=== PATIENT | male | born 1930 | race Caucasian/White ===

== ENCOUNTER → 2016-10-24 | Outpatient (REF) | payer MEDICARE, BC, OTHER ==
[~2016-10-24] MED LIST: /WARF5TA OR; ALPR0.25 OR; AUGM875T27 PO; CELE40TA OR; DEPA250T3 OR; GABA600T3 OR; HYOS0.375 OR; LEVOXYL25 MCG OR; MAXA10TA20 PO; NEUR300C PO; NEUR600T PO; OMEGA 3; OMEP20TA7 OR; REME15TA OR; WARF5VL IV; XANA0.25 OR; XANA0.5T PO; [UNRECOGNIZED DRUG - OTHER]; [UNRECOGNIZED DRUG - OTHER] OR
[2016-10-24 13:59] LABS: BASO % 0.6 % (0.0-1.0); EOS # 0.2 K/mm3 (0.0-0.50); EOS % 3.6 % (0.0-3.0); LARGE UNSTAINED CELL # 0.1 K/mm3 (0.0-0.4); LYMPH # 1.3 K/mm3 (1.5-4.5); LYMPH % 24.5 % (24.0-44.0); MEAN CORPUSCULAR HEMOGLOBIN 29.8 pg (27.0-33.0); MEAN CORPUSCULAR HGB CONC 32.2 g/dl (32.0-36.5); MEAN CORPUSCULAR VOLUME 92.6 fl (80.0-96.0); MONO # 0.3 K/mm3 (0.0-0.8); MONO % 6.4 % (0.0-5.0); NEUTROPHILS # 3.3 K/mm3 (1.8-7.7); NEUTROPHILS % 62.9 % (36.0-66.0); PLATELET COUNT, AUTOMATED 142 k/mm3 (150-450); RED CELL DISTRIBUTION WIDTH 13.6 % (11.5-14.5); WHITE BLOOD COUNT 5.2 K/mm3 (4.0-10.0)
[2016-10-24 14:01] LABS: ALBUMIN 3.4 GM/DL (3.2-5.2); ALBUMIN/GLOBULIN RATIO 1.26 (1.00-1.93); BILIRUBIN,TOTAL 0.5 MG/DL (0.2-1.0); CALCIUM LEVEL 8.8 MG/DL (8.8-10.2); CREATININE FOR GFR 1.35 MG/DL (0.70-1.30); FREE T4 1.16 NG/DL (0.76-1.46); GLOMERULAR FILTRATION RATE 53.3 (>35); POTASSIUM SERUM 3.9 MEQ/L (3.5-5.1); TOTAL PROTEIN 6.1 GM/DL (6.4-8.2)
== END ==
LOC: M LABSMT 13:14
PROVIDERS: ATTEND Emergency Medicine
DX: E03.9 Hypothyroidism, unspecified (principal); E78.2 Mixed hyperlipidemia; R53.83 Other fatigue

== ENCOUNTER 2016-11-28 11:08 | Emergency (ER) | payer MEDICARE, BC, OTHER ==
[~2016-11-28] VITALS: Ht 185.4 cm; Wt 63.5 kg
[2016-11-28] MEDS ORDERED: PRED5TA PO (11:34)
[2016-11-28] MEDS ORDERED: ASPI81CH PO (11:34)
[2016-11-28] MEDS ORDERED: QUET5TAB PO (11:34)
--- NOTE | 2016-11-28 12:36 | ECGEPIP ---
Stationary ECG Study [facility] - ED Test Date: 2016-11-28 Pat Name: JOBY CONNOR Department: Room: - Gender: M Health Program Manager: aisha : 1930 Requested By: Sai Joe Order Number: [id number] Reading MD: Genet Moore Measurements Intervals [place] Rate: 59 P: 56 NE: 190 QRS: 25 QRSD: 88 T: 48 QT: 447 QTc: 445 Interpretive Statements SINUS BRADYCARDIA NSTTW ABNORMALITY SIMILAR 09/23/14 Electronically Signed On 11-28-2016 12:36:06 EDT by Genet Moore
[2016-11-28 12:58] LABS: BASO % 0.3 % (0.0-1.0); EOS # 0.1 K/mm3 (0.0-0.50); EOS % 1.3 % (0.0-3.0); LARGE UNSTAINED CELL # 0.1 K/mm3 (0.0-0.4); LARGE UNSTAINED CELL % 1.1 % (0.0-4.0); LYMPH # 0.5 K/mm3 (1.5-4.5); LYMPH % 7.7 % (24.0-44.0); MEAN CORPUSCULAR HEMOGLOBIN 31.2 pg (27.0-33.0); MEAN CORPUSCULAR HGB CONC 34.6 g/dl (32.0-36.5); MEAN CORPUSCULAR VOLUME 90.1 fl (80.0-96.0); MONO # 0.3 K/mm3 (0.0-0.8); MONO % 4.9 % (0.0-5.0); NEUTROPHILS # 5.7 K/mm3 (1.8-7.7); NEUTROPHILS % 84.6 % (36.0-66.0); PLATELET COUNT, AUTOMATED 148 k/mm3 (150-450); RED CELL DISTRIBUTION WIDTH 13.8 % (11.5-14.5); WHITE BLOOD COUNT 6.8 K/mm3 (4.0-10.0)
[2016-11-28] MEDS ORDERED: ONDANSETRON 4MG/2ML VIAL (J2405) IV ONE (13:00)
[2016-11-28 13:21] LABS: CALCIUM LEVEL 9.1 MG/DL (8.8-10.2); CREATININE FOR GFR 1.31 MG/DL (0.70-1.30); GLOMERULAR FILTRATION RATE 55.2 (>35)
--- NOTE | 2016-11-28 15:32 | REP ---
ACUTE ABDOMINAL SERIES: 11/28/2016. Comparison: Portable chest 05/03/2015, CT abdomen pelvis 12/04/2015. Clinical history: Vomiting. PA chest. Lungs well inflated and clear. Heart, mediastinal and hilar contours are normal. There appears to be a small granuloma right midlung zone. No effusion, infiltrate or mass. Heart not enlarged. The aorta is calcified at the arch, mildly tortuous without aneurysm. Airway intact. Bones show degenerative changes. No compression deformity. Flat and upright abdomen: Right upper quadrant clips from prior cholecystectomy noted. There are degenerative disc and facet changes lower lumbar spine, greatest at L4-5 and L5-S1. Marginal osteophytes seen throughout the lumbar and lower thoracic spine. SI joints with minor degenerative changes. The hips show narrowing of the joint spaces along the acetabular roof peripherally and acetabular spurs with subchondral cysts. Symphysis pubis also shows some cystic change and sclerosis. No destructive lesion. The gas pattern is nonspecific with scattered stool and gas throughout without dilated loops, air-fluid levels, masses or free air in the abdomen and pelvis. Impression: 1. No dilated colon or small bowel loops with no obstruction, mass or free air.2. Right upper quadrant clips from prior cholecystectomy. 3. PA chest without acute finding. Signed by Layton Huerta MD 11/28/2016 05:12 P
[2016-11-28] MEDS ORDERED: ONDA4TAB6 PO (16:35)
[2016-11-28 17:37] VITALS: BP 122/60
--- NOTE | 2016-11-29 09:00 | ECGEPIP ---
Stationary ECG Study [facility] - ED Test Date: 2016-11-28 Pat Name: JOBY CONNOR Department: Room: - Gender: M Assembler Watch Train: rosibel : 1930 Requested By: Sai Joe Order Number: [id number] Reading MD: Genet Moore Measurements Intervals [place] Rate: 62 P: 61 MA: 194 QRS: 22 QRSD: 101 T: 61 QT: 419 QTc: 427 Interpretive Statements SINUS RHYTHM NONSPECIFIC T-WAVE ABNORMALITY SIMILAR 11/28/16 Electronically Signed On 11-29-2016 9:00:02 EDT by Genet Moore
== END 2016-11-28 17:51 | disposition home or self-care (01) ==
LOC: EDBD 11:08 → EDSEX 11:08 → M ED 12:15
DX: R55 Syncope and collapse (principal); R11.10 Vomiting, unspecified; G20 Parkinson's disease; Z88.8 Allergy status to other drugs, medicaments and biological substances; Z88.5 Allergy status to narcotic agent; Z88.1 Allergy status to other antibiotic agents; Z79.899 Other long term (current) drug therapy; Z79.82 Long term (current) use of aspirin; Z79.52 Long term (current) use of systemic steroids
CPT/HCPCS: 36415; 74022; 80048; 82550; 82553; 84443; 84484; 85025; 93005; 93041; 94760; 96374; 99285; J2405

== ENCOUNTER → 2017-01-06 | Outpatient (REF) | payer MEDICARE, OTHER ==
[~2017-01-06] MED LIST changes: +ASPI81CH PO; +ONDA4TAB6 PO; +PRED5TA PO; +QUET5TAB PO
== END ==
LOC: M LAB REF 18:57
PROVIDERS: ATTEND Physician Assistant Medical
DX: N41.0 Acute prostatitis (principal)

== ENCOUNTER 2017-02-28 11:31 | Inpatient (IN) | payer MEDICARE, BC, OTHER ==
[~2017-02-28] VITALS: Ht 182.9 cm; Wt 67.7 kg
--- NOTE | 2017-02-28 13:39 | REP ---
CT Head without contrast HISTORY: Syncope COMPARISON: 01/12/2015 Areas of decreased attenuation are present in the periventricular and subcortical white matter. This represents small-vessel ischemic disease. There is no intraparenchymal hemorrhage, acute infarct, mass or midline shift. The ventricular system and cortical sulci are dilated consistent with moderate volume loss. There is no extra cerebral collection. There is no fracture. The visualized sinuses are clear. IMPRESSION: 1. Small vessel ischemic disease. 2. Moderate volume loss. Signed by Jayden Smalls MD 02/28/2017 01:30 P
[2017-02-28 13:53] LABS: BASO % 0.5 % (0.0-1.0); EOS # 0.1 K/mm3 (0.0-0.50); EOS % 1.5 % (0.0-3.0); LARGE UNSTAINED CELL # 0.1 K/mm3 (0.0-0.4); LARGE UNSTAINED CELL % 1.2 % (0.0-4.0); LYMPH % 13.1 % (24.0-44.0); MEAN CORPUSCULAR HEMOGLOBIN 31.6 pg (27.0-33.0); MEAN CORPUSCULAR HGB CONC 34.2 g/dl (32.0-36.5); MEAN CORPUSCULAR VOLUME 92.3 fl (80.0-96.0); MONO # 0.5 K/mm3 (0.0-0.8); MONO % 7.3 % (0.0-5.0); NEUTROPHILS # 5.4 K/mm3 (1.8-7.7); NEUTROPHILS % 76.4 % (36.0-66.0); PLATELET COUNT, AUTOMATED 162 k/mm3 (150-450); RED CELL DISTRIBUTION WIDTH 13.8 % (11.5-14.5); WHITE BLOOD COUNT 7.1 K/mm3 (4.0-10.0)
[2017-02-28 14:10] LABS: ANION GAP 7 MEQ/L (8-16); BLOOD UREA NITROGEN 13 MG/DL (7-18); CARBON DIOXIDE LEVEL 29 MEQ/L (21-32); CHLORIDE LEVEL 105 MEQ/L (98-107); CREATININE FOR GFR 1.18 MG/DL (0.70-1.30); GLOMERULAR FILTRATION RATE > 60.0 (>35); GLUCOSE, FASTING 111 MG/DL (83-110); POTASSIUM SERUM 3.7 MEQ/L (3.5-5.1); SODIUM LEVEL 141 MEQ/L (136-145)
[2017-02-28] MEDS ORDERED: NS 500 ML IV ONE (14:15)
[2017-02-28] MEDS ORDERED: BUPR150T3 PO (14:56)
[2017-02-28] MEDS ORDERED: PRED5TA PO (14:56)
[2017-02-28] MEDS ORDERED: SERO50TA PO (14:56)
[2017-02-28] MEDS ORDERED: CITA40TA4 PO (14:56)
[2017-02-28] MEDS ORDERED: ASPI1TAB PO (14:56)
[2017-02-28] MEDS ORDERED: SYNT75TA PO (14:56)
[2017-02-28] MEDS ORDERED: ALPR0.5T3 PO (14:56)
[2017-02-28] MEDS ORDERED: GABA600T PO (14:56)
[2017-02-28] MEDS ORDERED: VITA10002 PO (15:09)
[2017-02-28] MEDS ORDERED: VITAD1000T PO (15:09)
[2017-02-28] MEDS ORDERED: ALPRAZolam 0.5 MG TAB PO PRN (15:45)
[2017-02-28] MEDS ORDERED: ONDANSETRON 4MG/2ML VIAL (J2405) IV PRN (15:45)
[2017-02-28] MEDS ORDERED: NS 1,000 ML IV SCH (16:30)
--- NOTE | 2017-02-28 17:04 | REP ---
PORTABLE CHEST: AP portable view of the chest is performed. The study is presented for dictation 3:30 pm 02/28/2017. There is no acute infiltrate. Heart is normal in size and there is calcified tortuous aorta. There is mild curvature of the thoracic spine convex to the right. IMPRESSION: No acute pulmonary disease. Signed by Devante Ho MD 03/01/2017 07:40 P
--- NOTE | 2017-02-28 18:07 | HPEPDOC ---
General Date of Admission Feb 28, 2017 at 15:38 Primary Care Physician: ZAINA LANDERS MD Attending Physician: UDAY CHAUHAN MD Chief Complaint The patient is a 86-year-old male admitted with a reason for visit of Syncope. History of Present Illness 86-year-old male with a past medical history significant for hypothyroidism, GERD, Parkinson's disease, and Lewy body dementia presented to the ER for the chief complaint of a syncopal episode. The patient's history is limited secondary to the patient's baseline clinical condition. However according to the patient's who is at the bedside, the patient was in the bathroom, and called out for his as he said that he felt weak. The patient had difficulty getting up from the toilet and going to the bathroom. At baseline the patient is able to ambulate without any assistive devices according to the . However, during this time he seemed increasingly lethargic. While transferring the patient to the bed, the patient's noted that he had a syncopal episode while laying down. She states that he has been having some loose and voluminous non-bloody stools for the past 1 week. She states that he has had an episode of syncope last week as well. She does admit that the patient has had episodes of syncope in the past, and this was attributed to the patient's underlying Parkinson's disease. However, during this time the patient has had some diarrhea so she was concerned that he was not eating enough and that he may be having an underlying infection. The patient has denied any complaints of fevers, chills, chest pain, palpitations, abdominal pain, sick contacts, recent travel, or any nausea/vomiting according to the . In the ER, a CT scan of the head revealed no acute findings. The patient will be admitted under the hospitalist service for further evaluation and management. Home Medications Scheduled Aspirin (Aspirin 81) 81 Mg Tab, 81 MG PO DAILY, (Reported) Bupropion Hcl (Bupropion HCl Xl) 150 Mg Tab, 150 MG PO DAILY, (Reported) Citalopram Hydrobromide (Citalopram Hydrobromide) 40 Mg Tab, 40 MG PO DAILY, ( Reported) Cyanocobalamin (Vitamin B-12) 1,000 Mcg Tab, 1,000 MCG PO DAILY, (Reported) Gabapentin (Gabapentin) 600 Mg Tab, 600 MG PO QHS, (Reported) Levothyroxine Sodium (Synthroid) 75 Mcg Tab, 75 MCG PO DAILY, (Reported) Prednisone (Prednisone) 5 Mg Tab, 5 MG PO Q2D, (Reported) Quetiapine Fumerate (Seroquel) 50 Mg Tab, 50 MG PO QHS, (Reported) Vitamin D (Vitamin D3) 1,000 Units Tab, 1,000 UNITS PO DAILY, (Reported) Scheduled PRN Alprazolam (Alprazolam) 0.5 Mg Tab, 0.5-1 TAB PO TID PRN for ANXIETY, (Reported) TOOK A HALF TAB THIS AM Allergies Coded Allergies: Aripiprazole (Verified Allergy, Unknown, 12/25/12) Cephalosporins (Verified Allergy, Unknown, CEFUROXIME, 12/25/12) Codeine (Verified Allergy, Unknown, 12/25/12) Meperidine (Verified Allergy, Unknown, 12/25/12) Simvastatin (Verified Allergy, Unknown, 12/25/12) Amitriptyline (Verified Adverse Reaction, Mild, hallucinations, 11/28/16) Carbidopa w/Levodopa (Verified Adverse Reaction, Mild, caused severe fatigue, 11/28/16) Donepezil (Verified Adverse Reaction, Mild, increased confusion, 11/28/16) Memantine (Verified Adverse Reaction, Mild, confusion, 11/28/16) Perphenazine (Verified Adverse Reaction, Mild, hallucinations, 11/28/16) Venlafaxine (Verified Adverse Reaction, Mild, headache, 11/28/16) Zonisamide (Verified Adverse Reaction, Mild, confusion, insomnia, 11/28/16) Past Medical History Medical History As noted in the HPI. Surgical History Appendectomy, tonsillectomy, disc surgery and hernia repair Social History * Smoker: Denies Alcohol: Denies Drugs: denies Recent Travel/Sick Contacts: Denies: Recent travel, Recent sick contacts Lives at home with his . Ambulates without any assistive devices at baseline. Review of Symptoms Other systems 10 point review of systems negative unless otherwise specified in HPI according to the patient's . Physical Examination General Exam: Positive: Cooperative, No Acute Distress ENT Exam: Positive: Atraumatic, Mucous membr. moist/pink Neck Exam: Negative: JVD Chest Exam: Positive: Clear to auscultation, Normal air movement Heart Exam: Positive: Rate Normal, Normal S1, Normal S2 Telemetry: Positive: Sinus Abdomen Exam: Positive: Soft, Negative: Tenderness Extremity Exam: Negative: Tenderness, Swelling Vital Signs Vital Signs Date Time Temp Pulse Resp B/P (MAP) Pulse Ox O2 Delivery O2 Flow Rate FiO2 02/28/17 15:32 156/69 (98) 02/28/17 15:31 60 96 02/28/17 11:53 99.3 20 Nasal Cannula 3.0 Laboratory Data Labs 24H Laboratory Tests 2 02/28/17 13:31: White Blood Count 7.1, Red Blood Count 4.30, Hemoglobin 13.6L, Hematocrit 39.7L , Mean Corpuscular Volume 92.3, Mean Corpuscular Hemoglobin 31.6, Mean Corpuscular Hemoglobin Concent 34.2, Red Cell Distribution Width 13.8, Platelet Count 162, Neutrophils (%) (Auto) 76.4H, Lymphocytes (%) (Auto) 13.1L, Monocytes (%) (Auto) 7.3H, Eosinophils (%) (Auto) 1.5, Basophils (%) (Auto) 0.5 , Neutrophils # (Auto) 5.4, Lymphocytes # (Auto) 1.0L, Monocytes # (Auto) 0.5, Eosinophils # (Auto) 0.1, Basophils # (Auto) 0.0, Large Unclassified Cells % 1.2 , Large Unclassified Cells # 0.1, Anion Gap 7L, Glomerular Filtration Rate > 60.0, Blood Urea Nitrogen 13, Creatinine 1.18, Sodium Level 141, Potassium Level 3.7, Chloride Level 105, Carbon Dioxide Level 29, Calcium Level 9.0, Total Creatine Kinase 49, Creatine Kinase MB 1.0, Creatine Kinase MB Relative Index 2.04, Troponin I < 0.02, Thyroid Stimulating Hormone (TSH) 0.250L 02/28/17 16:29: Total Creatine Kinase 46, Creatine Kinase MB 1.0, Creatine Kinase MB Relative Index 2.17, Troponin I < 0.02 CBC/BMP Laboratory Tests 02/28/17 13:31 Red Blood Count 4.30, Mean Corpuscular Volume 92.3, Mean Corpuscular Hemoglobin 31.6, Mean Corpuscular Hemoglobin Concent 34.2, Red Cell Distribution Width 13.8 , Neutrophils (%) (Auto) 76.4 H, Lymphocytes (%) (Auto) 13.1 L, Monocytes (%) ( Auto) 7.3 H, Eosinophils (%) (Auto) 1.5, Basophils (%) (Auto) 0.5, Neutrophils # (Auto) 5.4, Lymphocytes # (Auto) 1.0 L, Monocytes # (Auto) 0.5, Eosinophils # (Auto) 0.1, Basophils # (Auto) 0.0, Calcium Level 9.0 Microbiology Microbiology 02/28/17 Blood Culture, Received Pending Plan / VTE VTE Prophylaxis Ordered?: Yes Plan Plan Syncopal Episode Possibly 2/2 Autonomic Dysfunction from Underlying Parkinson's Disease EKG with no acute ST findings, QTc interval within normal limits Troponins within normal limits thus far Check Orthostatics We will continue to monitor the patient on Telemetry PT ordered Diarrhea GI Panel ordered No sick contacts, recent travel, ingestion of foreign foods, or antibiotic use noted Will provide Gentle IVF Hydration as the patient does not appear dehydrated at this time Parkinson's Disease with Lewy Body Dementia Seroquel, Wellbutrin, Celexa as ordered Xanax when necessary Hypothyroidism Continue levothyroxine DVT prophylaxis Lovenox The patient will be admitted under the service of Dr. Chauhan, who will begin to follow the patient on 03/01/17 at 7am. WANDA RICE MD Feb 28, 2017 18:07
[2017-02-28 18:40] VITALS: BP 131/96
[2017-02-28 19:44] VITALS: BP_SYST 164; BP_SYST 178; BP_DIAS 83; BP_DIAS 90; BP_DIAS 94
[2017-02-28 20:00] VITALS: PULSE 63
[2017-02-28] MEDS: GABAPENTIN 300 MG CAP PO SCH (20:30)
[2017-02-28] MEDS ORDERED: hydrALAZINE INJ 20 MG/ML VIAL IV ONE (20:45)
[2017-02-28] MEDS ORDERED: QUEtiapine FUMARATE 50 MG TAB PO SCH (21:00)
[2017-02-28 21:15] VITALS: BP 179/87
[2017-02-28] MEDS: LISINOPRIL 5 MG TAB PO SCH (21:47)
[2017-02-28 21:55] VITALS: BP 162/81
[2017-02-28 22:00] VITALS: BP 134/63
[2017-02-28] MEDS: ALPRAZolam 0.25 MG TAB PO PRN (22:00)
[2017-03-01] VITALS (9 sets, daily range): BP systolic 105–148; BP diastolic 51–73; PULSE 61–76
[2017-03-01 05:55] LABS: MEAN CORPUSCULAR HEMOGLOBIN 31.7 pg (27.0-33.0); MEAN CORPUSCULAR HGB CONC 33.8 g/dl (32.0-36.5); MEAN CORPUSCULAR VOLUME 93.7 fl (80.0-96.0); RED CELL DISTRIBUTION WIDTH 13.9 % (11.5-14.5); WHITE BLOOD COUNT 5.4 K/mm3 (4.0-10.0)
[2017-03-01] MEDS ORDERED: LEVOTHYROXINE 75MCG TABLET (0.075MG) PO SCH (06:00)
[2017-03-01 06:09] LABS: ALBUMIN 3.1 GM/DL (3.2-5.2); ALBUMIN/GLOBULIN RATIO 1.19 (1.00-1.93); ALKALINE PHOSPHATASE 63 U/L (45-117); ALT/SGPT 13 U/L (12-78); ANION GAP 4 MEQ/L (8-16); AST/SGOT 15 U/L (15-37); BILIRUBIN,TOTAL 0.8 MG/DL (0.2-1.0); BLOOD UREA NITROGEN 13 MG/DL (7-18); CALCIUM LEVEL 8.8 MG/DL (8.8-10.2); CARBON DIOXIDE LEVEL 29 MEQ/L (21-32); CHLORIDE LEVEL 105 MEQ/L (98-107); CREATININE FOR GFR 1.13 MG/DL (0.70-1.30); GLOMERULAR FILTRATION RATE > 60.0 (>35); GLUCOSE, FASTING 85 MG/DL (83-110); MAGNESIUM LEVEL 2.2 MG/DL (1.8-2.4); POTASSIUM SERUM 3.8 MEQ/L (3.5-5.1); SODIUM LEVEL 138 MEQ/L (136-145); TOTAL PROTEIN 5.7 GM/DL (6.4-8.2)
[2017-03-01] MEDS ORDERED: LORazepam 2 MG/ML VIAL (J2060) IV STA (08:16)
--- NOTE | 2017-03-01 10:06 | REP ---
MR BRAIN WITHOUT CONTRAST: HISTORY: Altered mental status. COMPARISON: 02/06/2015 A small area of increased signal intensity on T2-weighted images is present in the left cerebellum. This represents an old lacunar infarction. Areas of increased signal intensity on T2-weighted images are present in the periventricular and subcortical white matter. This represents small vessel ischemic disease. There is no intraparenchymal hemorrhage, acute infarct, mass or midline shift. The ventricular system and cortical sulci are dilated consistent with moderate volume loss. There is no extracerebral collection. The sinuses are clear. IMPRESSION: 1. 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 2. Small vessel ischemic disease. 3. Moderate volume loss. Signed by Jayden Smalls MD 03/01/2017 10:15 A
[2017-03-01] MEDS: LISINOPRIL 5 MG TAB PO SCH ×2 (10:46→20:45)
[2017-03-01] MEDS: VITAMIN D 1,000 INTERNATIONAL UNITS TABLET PO SCH (10:47)
[2017-03-01] MEDS: buPROPion **XL** TABLET 150MG (WELLBUTRIN XL) PO SCH (10:47)
[2017-03-01] MEDS: ASPIRIN 81 MG ENTERIC TAB PO SCH (10:47)
[2017-03-01] MEDS: CitaloPRAM (CeleXA) 20 MG TAB PO SCH (10:47)
[2017-03-01] MEDS: CYANOCOBALAMIN 500 MCG TAB PO SCH (10:47)
[2017-03-01] MEDS: ENOXAPARIN 40 MG/0.4 ML SYRINGE (J1650) SC SCH (10:48)
--- NOTE | 2017-03-01 16:09 | ECGEPIP ---
Stationary ECG Study [facility] - ED Test Date: 2017-02-28 Pat Name: JOBY CONNOR Department: Room: [place] [address] Gender: M Proofer Prepress: JEANNE : 1930 Requested By: LETY Tompkins Order Number: [id number] Reading MD: Genet Moore Measurements Intervals [place] Rate: 63 P: 62 DC: 188 QRS: 9 QRSD: 94 T: 34 QT: 421 QTc: 433 Interpretive Statements SINUS RHYTHM SEPTAL MYOCARDIAL INFARCTION, PROBABLY OLD SIMILAR 11/28/16 Electronically Signed On 03-01-2017 16:09:39 EDT by Genet Moore
[2017-03-01] MEDS: GABAPENTIN 300 MG CAP PO SCH (20:45)
[2017-03-01] MEDS: QUEtiapine FUMARATE 50 MG TAB PO SCH (20:45)
[2017-03-02] VITALS: BP 116/56
[2017-03-02] MEDS ORDERED: SLF 3 ML SYR IV PRN (00:15)
[2017-03-02 04:00] VITALS: BP_SYST 118; BP_SYST 123; BP_SYST 128; BP_DIAS 60; BP_DIAS 62; BP_DIAS 64
[2017-03-02] MEDS: LEVOTHYROXINE 50MCG TABLET (0.05MG) PO SCH (05:01)
[2017-03-02] MEDS: SLF 3 ML SYR IV SCH ×3 (05:02→21:04)
[2017-03-02 06:08] LABS: MEAN CORPUSCULAR HGB CONC 33.2 g/dl (32.0-36.5); MEAN CORPUSCULAR VOLUME 93.3 fl (80.0-96.0); RED CELL DISTRIBUTION WIDTH 13.6 % (11.5-14.5); WHITE BLOOD COUNT 5.7 K/mm3 (4.0-10.0)
[2017-03-02 06:25] LABS: ALBUMIN 2.8 GM/DL (3.2-5.2); ALBUMIN/GLOBULIN RATIO 1.08 (1.00-1.93); ALKALINE PHOSPHATASE 55 U/L (45-117); ALT/SGPT 12 U/L (12-78); ANION GAP 4 MEQ/L (8-16); AST/SGOT 12 U/L (15-37); BILIRUBIN,TOTAL 0.7 MG/DL (0.2-1.0); BLOOD UREA NITROGEN 13 MG/DL (7-18); CALCIUM LEVEL 8.5 MG/DL (8.8-10.2); CARBON DIOXIDE LEVEL 28 MEQ/L (21-32); CHLORIDE LEVEL 107 MEQ/L (98-107); CREATININE FOR GFR 1.04 MG/DL (0.70-1.30); GLOMERULAR FILTRATION RATE > 60.0 (>35); GLUCOSE, FASTING 88 MG/DL (83-110); POTASSIUM SERUM 3.6 MEQ/L (3.5-5.1); SODIUM LEVEL 139 MEQ/L (136-145); TOTAL PROTEIN 5.4 GM/DL (6.4-8.2)
[2017-03-02 08:00] VITALS: BP_SYST 119; BP_SYST 126; BP_SYST 137; BP_DIAS 59; BP_DIAS 61; BP_DIAS 71
[2017-03-02] MEDS: ENOXAPARIN 40 MG/0.4 ML SYRINGE (J1650) SC SCH (09:44)
[2017-03-02] MEDS: buPROPion **XL** TABLET 150MG (WELLBUTRIN XL) PO SCH (09:45)
[2017-03-02] MEDS: VITAMIN D 1,000 INTERNATIONAL UNITS TABLET PO SCH (09:45)
[2017-03-02] MEDS: QUEtiapine FUMARATE 50 MG TAB PO SCH ×2 (09:45→21:03)
[2017-03-02] MEDS: ASPIRIN 81 MG ENTERIC TAB PO SCH (09:45)
[2017-03-02] MEDS: predniSONE 5 MG TAB PO SCH (09:45)
[2017-03-02] MEDS: CitaloPRAM (CeleXA) 20 MG TAB PO SCH (09:45)
[2017-03-02] MEDS: CYANOCOBALAMIN 500 MCG TAB PO SCH (09:46)
[2017-03-02] MEDS: LISINOPRIL 5 MG TAB PO SCH ×2 (09:46→21:03)
--- NOTE | 2017-03-02 13:12 | IPN ---
DATE: 03/01/2017 SUBJECTIVE: The patient is seen and examined at the bedside. Chart has been reviewed. The patient appears restless, awake, alert, oriented to person only and appropriate. Very hard of hearing. VITAL SIGNS: Temperature 98.7, pulse 79, respiratory rate 18, blood pressure 115/58, 97% on 1.5 liters nasal cannula. GENERAL: The patient is awake, alert, and oriented to person only. No jugular venous distention (JVD). LUNGS: Clear to auscultation. No wheezes, rales, or rhonchi. HEART: S1, S2, sinus rhythm. ABDOMEN: Soft, nontender, nondistended. Positive bowel sounds. EXTREMITIES: No pitting edema. NEUROLOGIC: The patient is awake, alert, oriented to person only. He follows commands but unable to perform a full neurological workup. LABORATORY DATA: CBC and metabolic panel have been reviewed. MICROBIOLOGY: Blood culture is pending. MRI of the brain showed old left cerebellar lacunar infarct with small vessel ischemic disease, moderate volume loss. TSH is 0.25. ASSESSMENT AND PLAN: This is an 87-year-old with a history of Lewy-Body dementia, Parkinson's disease, hypothyroidism, reflux, who presented to the emergency room complaining of a syncopal episode at home and was found to be lethargic and was transferred to bed and had a complete syncopal episode witnessed by the . EKG was unremarkable. The patient's troponin was negative. Does not appear to be orthostatic. EKG showed sinus rhythm. 1. Syncope versus seizure activity, most likely secondary to automatic dysfunction from Parkinson's disease. Neurology consult. EEG to rule out seizure activity. EKG had no ST findings. QTC was within normal. Troponin negative. Orthostatics unremarkable. 2. Diarrhea. Check gastrointestinal panel. IV fluids for now. 3. Parkinson's disease, Lewy-Body dementia. On Seroquel, Wellbutrin, Celexa, Xanax as necessary. Neurology has been consulted for adjustment in medications. 4. Hypothyroidism with low TSH. Decrease Levothyroxine. 5. Deep vein thrombosis (DVT) prophylaxis with Lovenox.
--- NOTE | 2017-03-02 13:34 | REP ---
KUB, TWO VIEWS: HISTORY: Diarrhea. Air is present in small and large intestine. There are no air fluid levels or dilated loops of intestine. There is no pneumoperitoneum. A mild amount of stool is present in the colon. Degenerative change is present in the lumbar spine and hips. IMPRESSION: Nonspecific bowel gas pattern. Signed by Jayden Smalls MD 03/02/2017 01:35 P
[2017-03-02] MEDS: GABAPENTIN 300 MG CAP PO SCH (21:03)
--- NOTE | 2017-03-02 21:17 | IPN ---
DATE: 03/02/2017 SUBJECTIVE: The patient is seen and examined at the bedside. Chart has been reviewed. This morning, the patient denies any chest pain, pressure or tightness, lightheadedness, dizziness, or near syncope. He continues to have garbled speech which is most likely his baseline. He is awake, alert and oriented to person only, answering questions appropriately but with garbled speech. He has spontaneous movements. VITAL SIGNS: Temperature 99.4, pulse 69, respiratory rate 18, blood pressure 119/59, 96% on room air. GENERAL: The patient is awake, alert, and oriented to person only. HEENT: No jugular venous distention (JVD) or thyromegaly. Dry mucous membranes. No cervical lymphadenopathy. LUNGS: Clear to auscultation. No wheezes, rales, or rhonchi. HEART: S1, S2, sinus rhythm. ABDOMEN: Soft, nontender, nondistended. EXTREMITIES: No pitting edema. LABORATORY DATA: White count 5.7, hemoglobin 11, hematocrit 34, platelet count 140. Sodium 139, potassium 3.6, chloride 107, bicarbonate 28, BUN 13, creatinine 1.04, glucose of 88. MICROBIOLOGY: RSV panel 03/01/2017 negative. IMAGING STUDIES: MRI of the brain showed old left cerebellar lacunar infarct with small vessel ischemic disease, moderate volume loss. Chest x-ray 02/28/2017 shows no acute cardiopulmonary disease. ASSESSMENT AND PLAN: This is an 87-year-old with a history of Lewy-Body dementia, Parkinson's disease, hypothyroidism, and reflux who presented to the emergency room due a syncopal episode. The patient has been having nonbloody, loose bowel movements for the past week, had yelled out to his who sat him down on the bed where he passed out. The patient was brought in for evaluation of a syncopal episode. 1. Syncopal episode. The patient received IV fluids for possible dehydration from recent diarrhea. The patient has not had any bowel movements during this admission. Obtain a kidney, ureters and bladder (KUB). Bowel regimen if needed. Gastrointestinal (GI) panel could not be sent as no samples have been obtained. 2. History of Lewy-Body dementia with ongoing parkinsonian disease, progressive. Currently on Seroquel [address] Peters has been consulted. 3. Syncope versus seizure. EEG has been obtained. The patient's syncopal episodes may have been related to his advancing Parkinson's disease. I have discussed with the patient's and daughter at the bedside that this is most likely progressing disease and the patient may need placement. They are open to placement if required. Obtain physical therapy (PT) clearance. Await further recommendations from neurology. 4. 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 Continue on aspirin. 5. Hypothyroidism. Continue on Synthroid. With low thyroid-stimulating hormone (TSH), therefore Synthroid has been decreased. 6. Hypertension. Continue on lisinopril. 7. Vitamin D deficiency. Continue on vitamin D. 8. Anxiety. Continue on as-needed Xanax. DISPOSITION: Awaiting physical therapy clearance and results of EEG, any other further recommendations from Dr. Peters, patient and family services (PFS) has been consulted to assess social support at home. The patient lives with his elderly who is 82 years old with a daughter who lives about [place] the [address], who is not there 10/04. The patient may require placement.
[2017-03-02 22:00] VITALS: BP 125/62
[2017-03-03] MEDS: LEVOTHYROXINE 50MCG TABLET (0.05MG) PO SCH (05:46)
[2017-03-03] MEDS: SLF 3 ML SYR IV SCH ×3 (05:47→20:19)
[2017-03-03 06:00] VITALS: BP 123/58
[2017-03-03 07:24] LABS: ALBUMIN 2.8 GM/DL (3.2-5.2); ALBUMIN/GLOBULIN RATIO 0.97 (1.00-1.93); ALKALINE PHOSPHATASE 53 U/L (45-117); ALT/SGPT 11 U/L (12-78); ANION GAP 6 MEQ/L (8-16); AST/SGOT 12 U/L (15-37); BILIRUBIN,TOTAL 0.8 MG/DL (0.2-1.0); BLOOD UREA NITROGEN 12 MG/DL (7-18); CALCIUM LEVEL 8.9 MG/DL (8.8-10.2); CARBON DIOXIDE LEVEL 28 MEQ/L (21-32); CHLORIDE LEVEL 103 MEQ/L (98-107); CREATININE FOR GFR 0.98 MG/DL (0.70-1.30); GLOMERULAR FILTRATION RATE > 60.0 (>35); GLUCOSE, FASTING 90 MG/DL (83-110); MEAN CORPUSCULAR HEMOGLOBIN 32.4 pg (27.0-33.0); MEAN CORPUSCULAR HGB CONC 35.1 g/dl (32.0-36.5); MEAN CORPUSCULAR VOLUME 92.3 fl (80.0-96.0); POTASSIUM SERUM 3.7 MEQ/L (3.5-5.1); RED CELL DISTRIBUTION WIDTH 13.9 % (11.5-14.5); SODIUM LEVEL 137 MEQ/L (136-145); TOTAL PROTEIN 5.7 GM/DL (6.4-8.2)
[2017-03-03] MEDS: buPROPion **XL** TABLET 150MG (WELLBUTRIN XL) PO SCH (08:30)
[2017-03-03] MEDS: CYANOCOBALAMIN 500 MCG TAB PO SCH (08:30)
[2017-03-03] MEDS: CitaloPRAM (CeleXA) 20 MG TAB PO SCH (08:31)
[2017-03-03] MEDS: LISINOPRIL 5 MG TAB PO SCH ×2 (08:31→20:18)
[2017-03-03] MEDS: VITAMIN D 1,000 INTERNATIONAL UNITS TABLET PO SCH (08:31)
[2017-03-03] MEDS: ENOXAPARIN 40 MG/0.4 ML SYRINGE (J1650) SC SCH (08:32)
[2017-03-03] MEDS: QUEtiapine FUMARATE 50 MG TAB PO SCH ×2 (08:37→20:18)
[2017-03-03] MEDS: ASPIRIN 81 MG ENTERIC TAB PO SCH (08:39)
--- NOTE | 2017-03-03 09:27 | EEG ---
DATE OF STUDY: 03/01/2017 REFERRING PHYSICIAN: Dr. Starla Chauhan DIAGNOSIS: Syncope. ELECTROENCEPHALOGRAM (EEG) NUMBER: [id number]. HISTORY: The patient is an 87-year-old man with history of Lewy body dementia and had a passing-out spell. This EEG was done to rule out epileptic potential. He is currently on aspirin, Celexa, gabapentin, quetiapine, lisinopril, Lovenox, etc. TECHNICAL DESCRIPTION: This digital EEG was recorded by 21 scalp, ear, and two electrocardiogram (EKG) electrodes and was reviewed in bipolar and referential montages following reformatting in 10-20 international electrode placement system. INTERPRETATION: The patient was noted to be in awake and drowsy states during this EEG. Resting awake background rhythm consisted of 7 Hz theta activity measuring 15-40 microvolts in amplitude which was symmetric bilaterally. Stage I and II sleep were reviewed and were symmetric bilaterally. Hyperventilation could not be performed. Photic stimulation remained unremarkable. EKG revealed normal sinus rhythm. No focal, lateralizing, or epileptiform abnormalities were seen. No clinical or electrographic seizures were recorded. CONCLUSION: This EEG in awake, drowsy states, stage I and II sleep is abnormal due to presence of mild generalized slowing and disorganization of background consistent with nonspecific diffuse cerebral dysfunction, such as seen in dementia and encephalopathy due to multiple potential causes, including toxic, metabolic, autoimmune, infectious, or multifocal structural brain abnormalities. Clinical correlation is recommended.
--- NOTE | 2017-03-03 13:14 | REP ---
Chest two views HISTORY: Fever Comparison: 02/28/2017 There is elevation of the left hemidiaphragm. The lungs are clear. The heart is normal in size. The pulmonary vasculature is normal in appearance. The bony structure is intact. IMPRESSION: No acute disease. Signed by Jayden Smalls MD 03/03/2017 01:05 P
[2017-03-03 14:00] VITALS: BP 121/58
[2017-03-03] MEDS: ACETAMINOPHEN TAB 650MG DOSE (2X325MG) PO PRN (14:51)
--- NOTE | 2017-03-03 20:15 | ECHO ---
DATE OF PROCEDURE: 03/03/2017 REFERRING PHYSICIAN: Starla Chauhan MD PATIENT LOCATION: Room 5142 REASON FOR ECHOCARDIOGRAM: Syncope. 2D MEASUREMENTS: IVS: 1.1 cm LV: 4.3 cm LVPW: 1.1 cm LA: 3.5 cm IVC: 2.2 cm DOPPLER MEASUREMENTS: Peak velocity across the aortic valve: 12.95 m/s Peak velocity across the LVOT: 0.53 m/s Mitral E: 0.5, Mitral A: 0.5, with a ratio of 1.0 Maximum tricuspid valve velocity: 3.0 m/s 2D COMMENTS: 1. Technically limited study due to poor acoustic window. 2. The left ventricular size is normal with a normal global left ventricular systolic function. Left ventricular systolic ejection fraction is estimated at 60 to 65%. 3. The left atrium appeared to be normal in limited views as well as the right atrium. Normal right ventricle. 4. The atrial septum appeared to be normal in limited views. 5. Normal aortic root noted in limited views. 6. No pericardial effusion seen. 7. Mildly calcified aortic valve with normal leaflet excursion. Mildly calcified mitral annulus with normal anterior mitral valve leaflet motion. Normal tricuspid valve. The pulmonic valve and proximal pulmonary artery branches were not well visualized. 8. The inferior vena cava was mildly enlarged, central venous pressure is probably elevated. DOPPLER: It detects mild aortic regurgitation, mild tricuspid regurgitation. The calculated pulmonary artery systolic pressure varied between 40 to 50 mmHg. Abnormal relaxation pattern was noted across the mitral valve annulus, a pseudo-normal pattern may be present. IMPRESSION: 1. Technically limited study due to poor acoustic window. There are features of left ventricular diastolic dysfunction as mentioned above. 2. Aortic valve sclerosis with mild aortic regurgitation, but no aortic stenosis. 3. Mitral annulus calcification. 4. Mild tricuspid regurgitation with probably moderate pulmonary artery hypertension. 5. The inferior vena cava was mildly enlarged, central venous pressure might be elevated. MTDD
[2017-03-03] MEDS: GABAPENTIN 300 MG CAP PO SCH (20:18)
[2017-03-03 22:00] VITALS: BP 117/55
--- NOTE | 2017-03-03 22:15 | IPN ---
DATE: 03/03/2017 The patient is seen and examined at the bedside. Chart has been reviewed. The patient is febrile this morning. He otherwise continues with garbled speech which is his baseline. No new complaints. Eating his breakfast, requiring assistance this morning, unable to open his milk container and peel his banana. Maximum temperature (Tmax) 100.3, pulse 78, respiratory rate 18, blood pressure 123/58, 96% on room air. Generally: Awake, alert, oriented times three, answering questions appropriately with baseline mumbled speech. Lungs: Clear to auscultation. No wheezing, rales, or rhonchi. Heart: S1, S2, sinus rhythm. Abdomen: Soft, nontender, nondistended. Positive bowel sounds. Extremities: No cyanosis, clubbing, or pitting edema. LABORATORY DATA: White count 7, hemoglobin 11, hematocrit 32, platelet count 135. Sodium 137, potassium 3.7, chloride 103, bicarbonate 28, BUN 12, creatinine 0.98, glucose of 90. Microbiology: Respiratory panel negative. Blood culture no growth. IMAGING STUDIES: Abdominal x-ray 03/02/2017, shows nonspecific bowel gas pattern. ASSESSMENT AND PLAN: This is an 87-year-old male with a history of Lewy-Body dementia, Parkinson's disease, hypothyroidism, and reflux who presented to the emergency room (ER) due to a syncopal episode. The patient was having nonbloody, loose bowel movements for the past week, yelled out to his who sat him down on the bed where he passed out for a few seconds. The patient was brought in for evaluation of syncopal episode. 1. Syncope. Awaiting echocardiogram. No infectious etiology, however did have a low grade temperature here. EKG was unremarkable. Telemetry showed no arrhythmias. Patient was transferred to medical/surgical floor. Patient did receive IV fluids due to complaints of recent diarrhea at this time. EEG is negative. 2. Progressive Parkinson's. Seroquel added by Dr. Remedios Peters. Outpatient followup. Patient may need placement as he is currently maximum assistance. 3. Fever. No empiric antibiotics. Panculture. Check urinalysis. Chest x-ray. No growth on initial blood culture on admission. DISPOSITION: Awaiting physical therapy (PT) clearance versus placement.
[2017-03-04] MEDS: LEVOTHYROXINE 50MCG TABLET (0.05MG) PO SCH (05:36)
[2017-03-04] MEDS: SLF 3 ML SYR IV SCH ×3 (05:36→21:30)
[2017-03-04 06:00] VITALS: BP 116/83
[2017-03-04 06:08] LABS: MEAN CORPUSCULAR HEMOGLOBIN 31.9 pg (27.0-33.0); MEAN CORPUSCULAR HGB CONC 34.7 g/dl (32.0-36.5); MEAN CORPUSCULAR VOLUME 92.1 fl (80.0-96.0); RED CELL DISTRIBUTION WIDTH 13.8 % (11.5-14.5)
[2017-03-04 06:39] LABS: ALBUMIN 2.8 GM/DL (3.2-5.2); ALKALINE PHOSPHATASE 53 U/L (45-117); ALT/SGPT 12 U/L (12-78); ANION GAP 8 MEQ/L (8-16); AST/SGOT 10 U/L (15-37); BILIRUBIN,TOTAL 1.2 MG/DL (0.2-1.0); BLOOD UREA NITROGEN 14 MG/DL (7-18); CALCIUM LEVEL 8.9 MG/DL (8.8-10.2); CARBON DIOXIDE LEVEL 28 MEQ/L (21-32); CHLORIDE LEVEL 103 MEQ/L (98-107); GLOMERULAR FILTRATION RATE > 60.0 (>35); GLUCOSE, FASTING 98 MG/DL (83-110); SODIUM LEVEL 139 MEQ/L (136-145); TOTAL PROTEIN 6.3 GM/DL (6.4-8.2)
[2017-03-04] MEDS: LISINOPRIL 5 MG TAB PO SCH ×2 (07:52→21:30)
[2017-03-04] MEDS: ALPRAZolam 0.25 MG TAB PO PRN ×2 (07:52→15:14)
[2017-03-04] MEDS: buPROPion **XL** TABLET 150MG (WELLBUTRIN XL) PO SCH (07:52)
[2017-03-04] MEDS: ENOXAPARIN 40 MG/0.4 ML SYRINGE (J1650) SC SCH (07:52)
[2017-03-04] MEDS: CitaloPRAM (CeleXA) 20 MG TAB PO SCH (07:52)
[2017-03-04] MEDS: CYANOCOBALAMIN 500 MCG TAB PO SCH (07:53)
[2017-03-04] MEDS: predniSONE 5 MG TAB PO SCH (07:53)
[2017-03-04] MEDS: VITAMIN D 1,000 INTERNATIONAL UNITS TABLET PO SCH (07:53)
[2017-03-04] MEDS: ASPIRIN 81 MG ENTERIC TAB PO SCH (07:53)
[2017-03-04 14:00] VITALS: BP 128/87
[2017-03-04] MEDS: ACETAMINOPHEN TAB 650MG DOSE (2X325MG) PO PRN (18:13)
[2017-03-04] MEDS: QUEtiapine FUMARATE 50 MG TAB PO SCH (21:29)
[2017-03-04] MEDS: GABAPENTIN 300 MG CAP PO SCH (21:29)
[2017-03-04 22:00] VITALS: BP 135/64
--- NOTE | 2017-03-05 02:48 | IPN ---
DATE OF SERVICE: 03/04/2017 Patient is seen and examined at the bedside. Chart has been reviewed. The patient complains of feeling fatigue and generalized weakness today. Denies any nausea, vomiting. No chest pain, pressure, tightness, shortness of breath. He has been afebrile. No chills. No dysuria, urgency, frequency. Temperature 99.5, pulse 89, respiratory rate 18, blood pressure 116/83, 93% on room air. GENERAL: Patient is awake, alert, oriented to person. He is slow to answer, but a little bit clearer with his responses. LUNGS: Clear to auscultation. No wheezing, rales or rhonchi. HEART: S1, S2, sinus rhythm. ABDOMEN: Soft, nontender, nondistended. EXTREMITIES: No cyanosis or clubbing. LABORATORY DATA: White count 7, hemoglobin 11, hematocrit 32, platelet count 150. Sodium 139, potassium 4, chloride 103, bicarbonate 28, BUN 14, creatinine 1.1, glucose of 98. Total bilirubin of 1.2. Microbiology: Urine culture 03/03 no growth. Blood culture is negative. Chest x-ray no acute infiltrate. EEG showed slowing and disorganization due to nonspecific causes. ASSESSMENT AND PLAN: This is an 87-year-old male with a history of Lewy body dementia, Parkinson's disease, hypothyroidism, and reflux who presented to the emergency room (ER) due to a syncopal episode. The patient had been having nonbloody, loose bowel movements for the past week, yelled out to his who sat him down on the bed where he passed out for a few seconds. The patient was brought in for evaluation of syncopal episode. IMPRESSION: 1. Syncope. No significant valvular disease to account for patient's syncopal episode. No infectious etiology, however, he did have a low-grade temperature here. Chest x-ray, blood and urine cultures have bene negative. No signs of cellulitis. Mentation is currently at baseline. For syncopal episode, EKG was unremarkable. No prolonged QT, arrhythmia. Telemetry showed no abnormalities. Echocardiogram shows no overt severe valvular disease to account for patient's syncopal episode. Patient has been transferred to medical/surgical floor. Did receive intravenous fluids for possible dehydration. Patient is eating and drinking and tolerating oral intake well. EEG shows generalized encephalopathy. Could be secondary to multiple etiologies. 2. History of Lewy body dementia with progressive Parkinson's. Seroquel has been added by Dr. Peters. Patient had been increasingly sedated. Per the family request for decrease in the medications, Dr. Peters was agreeable to stopping the morning medications and continuing the Seroquel 50 mg nightly. Patient will need placement. He is currently maximum assistance with two persons. He lives with his elderly who is 82 years old and frail. Daughter lives about three miles away and is unable to provide 24/7 care at home. Patient and family services (PFS) has been consulted for possible placement issues. Family is agreeable to placement in light of patient's maximum assistance requirement and no significant help at home. 3. Fever. No empiric antibiotics for now. Panculture has been negative. Urinalysis has been negative. Blood has been negative. Chest x-ray shows no acute infiltrate. No acute indication for empiric antibiotics. 4. Anemia. No overt signs of bleeding. No acute indication for red blood cell transfusion.
[2017-03-05] MEDS: SLF 3 ML SYR IV SCH ×3 (05:44→22:00)
[2017-03-05] MEDS: LEVOTHYROXINE 50MCG TABLET (0.05MG) PO SCH (05:44)
[2017-03-05 06:00] VITALS: BP 112/66
[2017-03-05 06:27] LABS: MEAN CORPUSCULAR HEMOGLOBIN 32.1 pg (27.0-33.0); MEAN CORPUSCULAR HGB CONC 34.4 g/dl (32.0-36.5); MEAN CORPUSCULAR VOLUME 93.4 fl (80.0-96.0); RED CELL DISTRIBUTION WIDTH 13.7 % (11.5-14.5); WHITE BLOOD COUNT 7.6 K/mm3 (4.0-10.0)
[2017-03-05 06:56] LABS: ALBUMIN 2.6 GM/DL (3.2-5.2); ALBUMIN/GLOBULIN RATIO 0.72 (1.00-1.93); BILIRUBIN,TOTAL 0.8 MG/DL (0.2-1.0); CALCIUM LEVEL 9.1 MG/DL (8.8-10.2); CREATININE FOR GFR 1.22 MG/DL (0.70-1.30); GLOMERULAR FILTRATION RATE 59.8 (>35); POTASSIUM SERUM 3.9 MEQ/L (3.5-5.1); TOTAL PROTEIN 6.2 GM/DL (6.4-8.2)
[2017-03-05] MEDS: CYANOCOBALAMIN 500 MCG TAB PO SCH (08:07)
[2017-03-05] MEDS: LISINOPRIL 5 MG TAB PO SCH ×2 (08:07→21:19)
[2017-03-05] MEDS: buPROPion **XL** TABLET 150MG (WELLBUTRIN XL) PO SCH (08:07)
[2017-03-05] MEDS: VITAMIN D 1,000 INTERNATIONAL UNITS TABLET PO SCH (08:07)
[2017-03-05] MEDS: CitaloPRAM (CeleXA) 20 MG TAB PO SCH (08:07)
[2017-03-05] MEDS: ASPIRIN 81 MG ENTERIC TAB PO SCH (08:07)
[2017-03-05] MEDS: ENOXAPARIN 40 MG/0.4 ML SYRINGE (J1650) SC SCH (08:08)
--- NOTE | 2017-03-05 12:17 | REP ---
Left knee series: AP and lateral views. History: Knee contusion. The patient status post fall. Findings: There is moderate three compartment osteoarthritis with medial joint space narrowing and sclerosis. Three compartment spurring is seen. Chondrocalcinosis is noted fairly extensively. The suprapatellar bursa is distended consistent with a large joint effusion and there are multiple osteocartilaginous loose bodies suspected within the suprapatellar bursa and at the posterior joint line. No fracture is seen. Signed by Edwin Burnett MD 03/05/2017 12:53 P
[2017-03-05 14:00] VITALS: BP 146/67
[2017-03-05] MEDS: ACETAMINOPHEN TAB 650MG DOSE (2X325MG) PO PRN ×2 (14:49→21:21)
--- NOTE | 2017-03-05 18:03 | IPN ---
DATE: 03/05/2017 Patient seen and examined at the bedside. Chart has been reviewed. Patient complains of some left knee discomfort status post a fall at home. X-rays still pending. Otherwise, denies any dizziness, lightheadedness. Complains of general fatigue and weakness, and requests to just be in bed to sleep. Temperature 99.3 to 99.6, pulse 76, respiratory 18, blood pressure 112/66, 93% on room air. GENERAL: Patient is awake, alert, oriented to person only. LUNGS: Diminished, but clear. HEART: S1, S2. Irregularly irregular. ABDOMEN: Soft, nontender, nondistended. Positive bowel sounds. EXTREMITIES: No cyanosis, clubbing or pitting edema. Patient's left knee is markedly swollen. Range of motion could not be assessed due to severe pain. LABORATORY DATA: CBC, metabolic panel have been reviewed. ASSESSMENT AND PLAN: This is an 87-year-old male with history of Lewy body dementia, Parkinson's disease, hypothyroidism, reflux, presented to the emergency room (ER) due to syncopal episode at home. Patient was having nonbloody loose bowel movements for the past week. He yelled out to his , who sat him down on the bed, where he passed out for a few seconds. Patient was brought in evaluation of syncopal episode. Telemetry and EKG were unremarkable, showed no prolonged QT or arrhythmia. Patient was transferred to medical/surgical floor with the following issues: 1. Syncope. No significant valvular disease to account for patient's syncopal episode on echocardiogram. No infectious etiology; however, did have a low-grade temperature here. Chest x-ray, blood and urine cultures have been negative. No antibiotics have been given. No signs of cellulitis anywhere. Mentation is currently at baseline for syncopal episode. EKG was unremarkable with no prolonged QT or arrhythmia. Telemetry showed no abnormalities. Echocardiogram showed no overt severe valvular disease to account for patient's syncopal episode. Patient has since been transferred to medical/surgical floor. Did receive intravenous (IV) fluids for possible dehydration from recent multiple diarrhea episodes at home. Electroencephalogram (EEG) showed generalized encephalopathy, could be secondary to multiple etiologies. 2. History of Lewy body dementia, progressive Parkinson's. Seroquel has been added by Dr. Peters. Patient has been increasingly sedated and the twice a day dosing of 50 mg has been changed to at bedtime. Dr. Peters was agreeable and family was much more agreeable. He is currently maximum assistance with two person lifts with his elderly , who is 82, old and frail. Daughter lives three miles away, unable to provide 24/7 care at home. Patient and Family Services (PFS) has been consulted for placement. Family is agreeable to placement in light of patient's maximum assistance requirement, no significant help at home. 3. Low-grade fever No empiric antibiotics for now. Hernandez culture has been negative. Urinalysis (UA) has been negative. Blood culture has been negative. Chest x-ray shows no acute infiltrates. No acute indication for empiric antibiotics. 4. Anemia. No overt signs of bleeding. No acute indication for a red blood cell transfusion. 5. Left knee pain with swelling. Obtain an x-ray. Pain management, orthopedic consultation, if needed.
[2017-03-05] MEDS: QUEtiapine FUMARATE 50 MG TAB PO SCH (21:00)
[2017-03-05] MEDS: GABAPENTIN 300 MG CAP PO SCH (21:18)
[2017-03-05] MEDS: ALPRAZolam 0.25 MG TAB PO PRN (21:18)
[2017-03-05 22:00] VITALS: BP 111/59
[2017-03-06 06:00] VITALS: BP 128/62
[2017-03-06] MEDS: SLF 3 ML SYR IV SCH ×3 (06:00→21:15)
[2017-03-06] MEDS: LEVOTHYROXINE 50MCG TABLET (0.05MG) PO SCH (06:11)
[2017-03-06] MEDS: ACETAMINOPHEN TAB 650MG DOSE (2X325MG) PO PRN ×2 (06:12→15:53)
[2017-03-06 06:49] LABS: MEAN CORPUSCULAR HEMOGLOBIN 32.2 pg (27.0-33.0); MEAN CORPUSCULAR HGB CONC 34.2 g/dl (32.0-36.5); MEAN CORPUSCULAR VOLUME 94.1 fl (80.0-96.0); RED CELL DISTRIBUTION WIDTH 13.7 % (11.5-14.5); WHITE BLOOD COUNT 6.6 K/mm3 (4.0-10.0)
[2017-03-06 07:11] LABS: ALBUMIN 2.6 GM/DL (3.2-5.2); ALBUMIN/GLOBULIN RATIO 0.65 (1.00-1.93); BILIRUBIN,TOTAL 0.8 MG/DL (0.2-1.0); CALCIUM LEVEL 9.3 MG/DL (8.8-10.2); CREATININE FOR GFR 1.33 MG/DL (0.70-1.30); GLOMERULAR FILTRATION RATE 54.1 (>35); POTASSIUM SERUM 3.9 MEQ/L (3.5-5.1); TOTAL PROTEIN 6.6 GM/DL (6.4-8.2)
[2017-03-06] MEDS: LISINOPRIL 5 MG TAB PO SCH ×2 (08:04→21:14)
[2017-03-06] MEDS: CYANOCOBALAMIN 500 MCG TAB PO SCH (08:04)
[2017-03-06] MEDS: predniSONE 5 MG TAB PO SCH (08:04)
[2017-03-06] MEDS: NS 1,000 ML IV SCH ×2 (08:05→21:14)
[2017-03-06] MEDS: CitaloPRAM (CeleXA) 20 MG TAB PO SCH (08:05)
[2017-03-06] MEDS: ASPIRIN 81 MG ENTERIC TAB PO SCH (08:05)
[2017-03-06] MEDS: VITAMIN D 1,000 INTERNATIONAL UNITS TABLET PO SCH (08:05)
[2017-03-06] MEDS: ENOXAPARIN 40 MG/0.4 ML SYRINGE (J1650) SC SCH (08:06)
[2017-03-06] MEDS ORDERED: LIDOCAINE 1% MDV 20ML VIAL IM ONE (09:30)
[2017-03-06 14:00] VITALS: BP 100/55
--- NOTE | 2017-03-06 15:28 | CR ---
DATE OF CONSULTATION: 03/06/2017 REQUESTING PROVIDER: Dr. Chauhan CHIEF COMPLAINT: Left knee swelling, recent fever. HISTORY: This is an 87-year-old gentleman who was admitted on 02/28/2017 for history of syncope. He has medical history that consists of hypothyroidism, gastroesophageal reflux disease (GERD), Parkinson's, Lewy-Body dimension who was admitted through the emergency room for syncope. Apparently, he felt weak at home. His had difficulty getting him up from the toilet and going to the bathroom. He is normally able to ambulate without assistive devices, but was noted to be somewhat lethargic. He was worked up with a CT scan in the emergency room and admitted. PAST MEDICAL HISTORY: Is as noted above and notable for hypothyroidism, GERD, Parkinson's disease, Lewy-Body dementia. ALLERGIES: His allergies are multiple, including: - MEPERIDINE - SIMVASTATIN - ARIPIPRAZOLE - CEPHALOSPORIN He has adverse reactions to AMITRIPTYLINE, VENLAFAXINE, PERPHENAZINE, DONEPEZIL, ZONISAMIDE, AMANITINE, CARBIDOPA, BUPROPION, CITALOPRAM, HYDROBROMIDE, VITAMIN B12, GABAPENTIN, SYNTHROID, PREDNISONE, SEROQUEL, VITAMIN D. SOCIAL HISTORY: She denies smoking or alcohol use. REVIEW OF SYSTEMS: Otherwise, reportedly negative, although not able to get much of a history out of the patient, but according to the medical record, his 10-point review of systems was negative for shortness of breath, chest pain, abdominal pain, bowel or bladder changes, skin changes, etc. PHYSICAL EXAMINATION: His extraocular muscles are intact. He has nonlabored breathing. His abdomen is soft and nontender. Pulses seem to be normal rate. Extremities: Left lower extremity demonstrates a grade 2 to 3 effusion of his left knee. There is mild warmth. There is no redness. He keeps his knee flexed at about 30 degrees but does seem to tolerate range of motion from about 10-70 degrees. Does not seem to be overly irritable. Skin is intact. Radiographs are reviewed of his left knee, which show some loose bodies etc. There appears to be no acute findings. His white count has been normal for the past several days and today was 6.6. He has a hemoglobin of 10.9, hematocrit 32. He is a SED rate from a couple days ago of 52 with the normal range being 0 to 30. There was a CRP of 11 two days ago with a normal range being up to 0.3. Currently, he has a blood pressure of approximately 128/62. He has a temperature of 99.9 as of this morning, respirations 18, pulse oximetry 95 on room air. IMPRESSION: 87-year-old gentleman with multiple medical problems and dementia who has had a swollen left knee for known duration but probably several days. He has had a fever as of yesterday. He does have some elevation of a CRP and sed rate. White count is normal. Rule out septic joint. I recommended to the patient that we aspirate this and I consented him for this. I explained the small risk of bleeding, infection, drug reaction, etc. Under sterile conditions, I prepped and draped the left knee and then was able to aspirate off some straw-colored, fairly translucent fluid from his left knee. A total of 100 mL were drawn out, which decompressed the knee quite nicely. Did not have any obvious purulence. He tolerated this well and a Band-Aid was applied. The plan will be to send this off for routine joint fluid analysis, gram stain, cell count, culture, uric acid crystals, rheumatoid titer, etc. and decide on how to proceed based on that. Otherwise, I think that his activity can be as tolerated from an orthopedic standpoint.
[2017-03-06 15:36] LABS: CRYSTALS, BODY FLUID CA PYROPHOSPHATE (NONE SEEN); SYNOVIAL FLUID COLOR YELLOW (YELLOW)
[2017-03-06 15:45] LABS: RBC ADVIA BF 0.01; RBC CALC. BF 10000 (< 10mm3 cells/uL); WBC ADVIA BF 9.9; WBC CALC. BF 9900 cells/uL (0-20)
[2017-03-06 15:50] LABS: BF DIFF IF INDICATED? YES (NO); URIC ACID, BODY FLUID 6.8 MG/DL (NOT ESTABLISHED)
[2017-03-06 16:48] LABS: CC BF DIFF EXAM UNSPUN; HCT SOURCE LFT KNEE
[2017-03-06] MEDS: GABAPENTIN 300 MG CAP PO SCH (21:14)
[2017-03-06] MEDS: QUEtiapine FUMARATE 50 MG TAB PO SCH (21:14)
[2017-03-06 22:00] VITALS: BP 114/58
[2017-03-07] MEDS: SLF 3 ML SYR IV SCH (05:50)
[2017-03-07] MEDS: LEVOTHYROXINE 50MCG TABLET (0.05MG) PO SCH (05:50)
[2017-03-07 06:00] VITALS: BP 118/56
--- NOTE | 2017-03-07 06:30 | IPN ---
DATE OF VISIT: 03/06/2017 The patient is seen and examined at the bedside. The chart has been reviewed. The patient continues to have recurrent fevers 101.4 despite negative urinalysis (UA), urine culture and sensitivity (C and S), chest x-ray and blood cultures. The patient was evaluated for a left knee swelling and currently undergoing work-up for possible septic arthritis. PHYSICAL EXAMINATION: VITAL SIGNS: Temperature max (T-max) of 101.4. Current temperature is 98.4), pulse 77, respirations 16, blood pressure 100/55, 95% on room air. GENERAL: The patient is awake, alert and oriented to person only. He has chronic baseline dementia. He answers questions appropriately but goes back to sleep. He has been sedated from the Seroquel which we have adjusted to 50 nightly and have discontinued the patient's Wellbutrin this morning. LUNGS: Diminished breath sounds but clear to auscultation. No wheezing, rales or rhonchi. HEART: S1, S2, sinus rhythm. ABDOMEN: Soft, nontender, nondistended, positive bowel sounds. EXTREMITIES: Left knee has significant effusion, tender to touch. No erythema, no pitting edema bilateral lower extremities. LABORATORY DATA: Imaging studies have been reviewed. X-ray of the left knee shows tricompartment syndrome with severe osteoarthritis and effusion. ASSESSMENT AND PLAN: This is an 87-year-old male with history of Lewy body dementia, Parkinson's disease, recurrent falls at home thought to be secondary to advancing and progressive Parkinson's, hypothyroidism and reflux presented to the emergency room with a syncopal episode at home. The patient has been having nonbloody, loose bowel movements for the past week. He yelled out to his who sat him down on the bed where he passed out for a few seconds. The patient was brought in for evaluation for syncopal episodes. Telemetry, EKG were unremarkable. It showed no prolonged QT or arrhythmia. The patient was transferred to [facility] with the following issues: 1. Syncope versus seizure. Echocardiogram shows no significant valvular disease to account for patient's syncopal episode. Telemetry was unremarkable. No obvious infectious etiology. Urine, blood and chest x-ray are negative. However due to the current falls he has a notable swelling of the left knee and with recurrent fevers will need to work-up for septic arthritis. 2. Mentation is improved with discontinuation of the Wellbutrin, as well as his Seroquel limited to nightly. 3. EKG was unremarkable. No prolonged QT or arrhythmia. Telemetry with no abnormalities. 4. Left knee swelling. The x-ray shows possible effusion due to fevers, rule out septic arthritis. Orthopedic surgeon Dr. Prakash Silva has been consulted for arthrocentesis. Await culture results and treat with antibiotics if positive. 5. History of Lewy body dementia, progressive Parkinson's. Seroquel has been added by Dr. Peters, decreased to 50 nightly from 50 twice a day due to ongoing sedation and unable to work with physical therapy. The patient is currently two person maximal assistance and he lives with his elderly , who is 82, the family has requested for placement. 6. Recurrent fevers. Possible source would be the left knee. Rule out septic arthritis, await culture results and arthrocentesis by orthopedic surgery. 7. Anemia. No current signs of bleeding.
[2017-03-07 06:55] LABS: MEAN CORPUSCULAR HEMOGLOBIN 31.9 pg (27.0-33.0); MEAN CORPUSCULAR HGB CONC 33.6 g/dl (32.0-36.5); MEAN CORPUSCULAR VOLUME 94.9 fl (80.0-96.0); RED CELL DISTRIBUTION WIDTH 13.6 % (11.5-14.5); WHITE BLOOD COUNT 5.4 K/mm3 (4.0-10.0)
[2017-03-07 07:18] LABS: ALBUMIN 2.3 GM/DL (3.2-5.2); ALBUMIN/GLOBULIN RATIO 0.59 (1.00-1.93); ALKALINE PHOSPHATASE 43 U/L (45-117); ALT/SGPT 11 U/L (12-78); ANION GAP 6 MEQ/L (8-16); AST/SGOT 15 U/L (15-37); BILIRUBIN,TOTAL 0.3 MG/DL (0.2-1.0); BLOOD UREA NITROGEN 22 MG/DL (7-18); CALCIUM LEVEL 8.6 MG/DL (8.8-10.2); CARBON DIOXIDE LEVEL 27 MEQ/L (21-32); CHLORIDE LEVEL 106 MEQ/L (98-107); CREATININE FOR GFR 0.99 MG/DL (0.70-1.30); GLOMERULAR FILTRATION RATE > 60.0 (>35); GLUCOSE, FASTING 90 MG/DL (83-110); POTASSIUM SERUM 3.9 MEQ/L (3.5-5.1); SODIUM LEVEL 139 MEQ/L (136-145); TOTAL PROTEIN 6.2 GM/DL (6.4-8.2)
[2017-03-07 08:45] VITALS: BP 118/56
[2017-03-07] MEDS: CYANOCOBALAMIN 500 MCG TAB PO SCH (08:45)
[2017-03-07] MEDS: VITAMIN D 1,000 INTERNATIONAL UNITS TABLET PO SCH (08:45)
[2017-03-07] MEDS: ASPIRIN 81 MG ENTERIC TAB PO SCH (08:45)
[2017-03-07] MEDS: LISINOPRIL 5 MG TAB PO SCH (08:45)
[2017-03-07] MEDS: CitaloPRAM (CeleXA) 20 MG TAB PO SCH (08:45)
[2017-03-07] MEDS: ENOXAPARIN 40 MG/0.4 ML SYRINGE (J1650) SC SCH (08:45)
[2017-03-07] MEDS: NS 1,000 ML IV SCH (08:46)
[2017-03-07] MEDS ORDERED: MOM 30ML SUSPENSION UDC PO ONE (11:00)
[2017-03-07] MEDS ORDERED: PRED10TA PO (11:02)
--- NOTE | 2017-03-07 18:15 | DSES ---
DATE OF ADMISSION: 02/28/2017 DATE OF DISCHARGE: 03/07/2017 ATTENDING PHYSICIAN: Milagros Lawson M.D., Starla Chauhan M.D. PRIMARY CARE PROVIDER: Daniel Cronin MD REFERRING PHYSICIAN: None. CONSULTING PHYSICIAN: Dr. Peters, Dr. Prakash Silva. CONDITION ON DISCHARGE: Stable. FINAL DIAGNOSES: 1. Syncope secondary to progressive Parkinson's and Jose G-body dementia. 2. 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 PROCEDURES: Patient received left knee arthroscopy by Dr. Silva on 03/06/2017. HISTORY OF PRESENT ILLNESS: Patient is an 86-year-old male with a past medical history of hyperthyroidism, gastroesophageal reflux disease, Parkinson's disease, Jose G-body dementia presented to the emergency room with complaints of syncopal episode. Patient's history is limited given that he has baseline dementia, however the patient's was able to provide a majority of the history. As per the the patient was feeling weak, was ambulating from toilet to the bedroom and was experiencing worsening of the weakness upon movement to his bed. The patient had fallen and landed on his left knee but had not experienced any head trauma. Patient was then transferred to the emergency room. HOSPITAL COURSE: 1. Syncope versus a seizure less likely secondary to underlying Parkinson's disease and Jose G-body dementia. No evidence of seizure disorder. Patient then evaluated by neurology. Patient will likely be returning to group home at this point. 2. Left knee pain with swelling. Patient had an arthroscopy done with Dr. Silva, which was positive for pseudogout. Patient's prednisone at baseline has been increased for the next one week duration. 3. Jose G-body dementia and Parkinson's. Patient to continue with Seroquel as per neurology. 4. Anemia. No signs of bleeding. 5. Hyperthyroidism. Continue with levothyroxine. 6. Gastroesophageal reflux disease. Continue with PPI. 7. Deep vein thrombosis prophylaxis. Continue with sequential compression devices. DISCHARGE MEDICATIONS: Patient will be discharged on the following medication list - Prednisone 10 mg to be taken as directed. - Alprazolam 0.5 mg by mouth three times a day as needed anxiety - aspirin 81 mg by mouth daily - bupropion 150 mg by mouth every day - citalopram 40 mg by mouth every day - vitamin B12 1000 mcg by mouth every day - gabapentin 600 mg by mouth at bedtime - levothyroxine 75 mcg by mouth every day - Prednisone 5 mg to be taken after completion of current Prednisone dose - quetiapine 50 mg by mouth at bedtime - vitamin D 1000 units by mouth every day DISCHARGE INSTRUCTIONS: The patient has been advised to follow up with primary care provider and neurology within the next 7 days. He has been advised to remain compliant with treatment plan and medications and return to the emergency room if he experiences any problems. TIME SPENT ON DISCHARGE: 35 minutes.
== END 2017-03-07 12:00 | DRG 57 ==
LOC: EDBD 11:31 → M ED 12:37 → M ED INP 15:38 → M PCU 03-01 11:37 → M MS5PR 03-02 14:12
PROVIDERS: ADMIT Internal Medicine; ATTEND General Practice
PROC: 0S9D3ZZ Drainage of Left Knee Joint, Percutaneous Approach (ICD-10-PCS; principal; 2017-03-06)
DX: G20 Parkinson's disease (principal); G31.83 Neurocognitive disorder with Lewy bodies; R55 Syncope and collapse; E86.0 Dehydration; E55.9 Vitamin D deficiency, unspecified; F41.9 Anxiety disorder, unspecified; R19.7 Diarrhea, unspecified; I10 Essential (primary) hypertension; M11.262 Other chondrocalcinosis, left knee; E03.9 Hypothyroidism, unspecified; K21.9 Gastro-esophageal reflux disease without esophagitis; Z79.52 Long term (current) use of systemic steroids; Z79.82 Long term (current) use of aspirin; Z79.899 Other long term (current) drug therapy; Z88.1 Allergy status to other antibiotic agents; Z88.5 Allergy status to narcotic agent; Z88.8 Allergy status to other drugs, medicaments and biological substances; Z86.73 Personal history of transient ischemic attack (TIA), and cerebral infarction without residual deficits

== ENCOUNTER → 2017-03-13 | Outpatient (REF) ==
[~2017-03-13] MED LIST changes: +ALPR0.25 PO; +ALPR0.5T3 PO; +ASPI1TAB PO; +BUPR150T3 PO; +CELE20TA PO; +CIPR500T3 PO; +CITA40TA4 PO; +DULC10SU2 PR; +ENEMENE16 PR; +ENSULIQ64 PO; +FLOM5CAP PO; +GABA600T PO; +MILKSUS PO; +MULT1TAB18 PO; +PRED10TA2 PO; +SENN8.6C PO; +SENN8.6T7 PO; +SERO50TA PO; +SYNT75TA PO; +TYLE325T5 PO; +VITA10002 PO; +VITAD1000T PO
[2017-03-13 09:44] LABS: MEAN CORPUSCULAR VOLUME 93.9 fl (80.0-96.0); RED CELL DISTRIBUTION WIDTH 13.6 % (11.5-14.5); WHITE BLOOD COUNT 6.5 K/mm3 (4.0-10.0)
[2017-03-13 09:46] LABS: CALCIUM LEVEL 9.2 MG/DL (8.8-10.2); CREATININE FOR GFR 1.24 MG/DL (0.70-1.30); GLOMERULAR FILTRATION RATE 58.7 (>35); POTASSIUM SERUM 4.4 MEQ/L (3.5-5.1)
== END ==
LOC: SKLAB3 07:00
DX: D64.9 Anemia, unspecified (principal)

== ENCOUNTER → 2017-04-02 | Outpatient (REF) | payer MEDICARE, BC, OTHER ==
[2017-04-02 14:24] LABS: BASO % 0.4 % (0.0-1.0); EOS # 0.1 K/mm3 (0.0-0.50); EOS % 1.1 % (0.0-3.0); LARGE UNSTAINED CELL # 0.1 K/mm3 (0.0-0.4); LARGE UNSTAINED CELL % 1.4 % (0.0-4.0); LYMPH # 0.8 K/mm3 (1.5-4.5); LYMPH % 8.3 % (24.0-44.0); MEAN CORPUSCULAR HEMOGLOBIN 30.5 pg (27.0-33.0); MEAN CORPUSCULAR HGB CONC 33.1 g/dl (32.0-36.5); MEAN CORPUSCULAR VOLUME 92.2 fl (80.0-96.0); MONO # 0.5 K/mm3 (0.0-0.8); MONO % 5.9 % (0.0-5.0); NEUTROPHILS # 6.3 K/mm3 (1.8-7.7); NEUTROPHILS % 82.7 % (36.0-66.0); PLATELET COUNT, AUTOMATED 330 k/mm3 (150-450); RED CELL DISTRIBUTION WIDTH 14.3 % (11.5-14.5); WHITE BLOOD COUNT 7.6 K/mm3 (4.0-10.0)
[2017-04-02 14:46] LABS: ALBUMIN 2.5 GM/DL (3.2-5.2); ALBUMIN/GLOBULIN RATIO 0.76 (1.00-1.93); ALKALINE PHOSPHATASE 63 U/L (45-117); ALT/SGPT 11 U/L (12-78); ANION GAP 8 MEQ/L (8-16); AST/SGOT 12 U/L (15-37); BILIRUBIN,TOTAL 0.5 MG/DL (0.2-1.0); BLOOD UREA NITROGEN 17 MG/DL (7-18); CALCIUM LEVEL 8.7 MG/DL (8.8-10.2); CARBON DIOXIDE LEVEL 28 MEQ/L (21-32); CHLORIDE LEVEL 95 MEQ/L (98-107); CREATININE FOR GFR 1.09 MG/DL (0.70-1.30); GLOMERULAR FILTRATION RATE > 60.0 (>35); GLUCOSE, FASTING 134 MG/DL (83-110); POTASSIUM SERUM 3.7 MEQ/L (3.5-5.1); SODIUM LEVEL 131 MEQ/L (136-145); TOTAL PROTEIN 5.8 GM/DL (6.4-8.2)
== END ==
LOC: SKLAB3 13:26
DX: R50.9 Fever, unspecified (principal)

== ENCOUNTER → 2017-04-03 | Outpatient (REF) | LOC: SKLAB3 15:09 | DX: R33.9 Retention of urine, unspecified (principal) ==

== ENCOUNTER 2017-06-12 08:56 | Inpatient (IN) | payer MEDICARE, BC, OTHER ==
[~2017-06-12] VITALS: Ht 182.9 cm; Wt 64.3 kg
[~2017-06-12 08:56] MED LIST changes: -ALPR0.25 PO; -CELE20TA PO; -CIPR500T3 PO; -DULC10SU2 PR; -ENEMENE16 PR; -ENSULIQ64 PO; -FLOM5CAP PO; -MILKSUS PO; -MULT1TAB18 PO; -SENN8.6C PO; -SENN8.6T7 PO; -TYLE325T5 PO
[2017-06-12] MEDS ORDERED: CitaloPRAM (CeleXA) 20 MG TAB PO SCH (09:00)
[2017-06-12] MEDS ORDERED: MULT1TAB18 PO (09:16)
[2017-06-12] MEDS ORDERED: TYLE325T5 PO (09:16)
[2017-06-12] MEDS ORDERED: CELE20TA PO (09:16)
[2017-06-12] MEDS ORDERED: DULC10SU2 PR ×2 (09:16→12:44)
[2017-06-12] MEDS ORDERED: SENN8.6C PO (09:16)
[2017-06-12] MEDS ORDERED: FLOM5CAP PO (09:16)
--- NOTE | 2017-06-12 10:01 | REP ---
CT Head without contrast HISTORY: Syncope COMPARISON: Areas of decreased attenuation are present in the periventricular and subcortical white matter. This represents small-vessel ischemic disease. There is no intraparenchymal hemorrhage, acute infarct, mass or midline shift. The ventricular system and cortical sulci are dilated consistent with moderate volume loss. There is no extra cerebral collection. There is no fracture. The visualized sinuses are clear. IMPRESSION: 1. Small vessel ischemic disease. 2. Moderate volume loss. Signed by Jayden Smalls MD 06/12/2017 09:52 A
--- NOTE | 2017-06-12 10:02 | REP ---
CHEST, SINGLE VIEW: There is no evidence of acute infiltrate. No pleural effusion is seen. The heart is normal in size. The mediastinal silhouette is unremarkable. The visualized osseous structures are intact. IMPRESSION: No acute pulmonary disease. Signed by Devante Ho MD 06/12/2017 05:32 P
[2017-06-12 10:33] LABS: ANION GAP 7 MEQ/L (8-16); BLOOD UREA NITROGEN 14 MG/DL (7-18); CALCIUM LEVEL 9.4 MG/DL (8.8-10.2); CARBON DIOXIDE LEVEL 28 MEQ/L (21-32); CHLORIDE LEVEL 99 MEQ/L (98-107); CREATININE FOR GFR 0.88 MG/DL (0.70-1.30); GLOMERULAR FILTRATION RATE > 60.0 (>35); GLUCOSE, FASTING 104 MG/DL (83-110); POTASSIUM SERUM 4.3 MEQ/L (3.5-5.1); SODIUM LEVEL 134 MEQ/L (136-145)
[2017-06-12 10:44] LABS: MEAN CORPUSCULAR HEMOGLOBIN 29.8 pg (27.0-33.0); MEAN CORPUSCULAR HGB CONC 33.5 g/dl (32.0-36.5); RED CELL DISTRIBUTION WIDTH 15.6 % (11.5-14.5); WHITE BLOOD COUNT 11.3 10^3/uL (4.0-10.0)
[2017-06-12 10:47] LABS: ADD MANUAL DIFFER YES; DIFF SLIDE NUMBER 141
[2017-06-12 11:10] LABS: EOSINOPHILS 2 % (0-5)
[2017-06-12] MEDS ORDERED: ALPR0.25 PO (12:44)
[2017-06-12] MEDS ORDERED: SENN8.6T7 PO (12:44)
[2017-06-12] MEDS ORDERED: ENSULIQ64 PO (12:44)
[2017-06-12] MEDS ORDERED: MILKSUS PO (12:44)
[2017-06-12] MEDS ORDERED: ASPI81CH PO (12:44)
[2017-06-12] MEDS ORDERED: ENEMENE16 PR (12:44)
[2017-06-12] MEDS ORDERED: ONDANSETRON 4MG/2ML VIAL (J2405) IV PRN (12:45)
[2017-06-12] MEDS ORDERED: BISACODYL 10 MG SUPP PR PRN (14:00)
[2017-06-12] MEDS ORDERED: FLEET ENEMA PR PRN (14:00)
[2017-06-12] MEDS ORDERED: MOM 30ML SUSPENSION UDC PO PRN (14:00)
[2017-06-12] MEDS: NS 1,000 ML IV SCH (14:00)
[2017-06-12] MEDS: HEPARIN SOD (PORCINE) 5000 UNITS/ML VIAL SC SCH ×2 (14:00→22:02)
--- NOTE | 2017-06-12 14:12 | HPEPDOC ---
General Date of Admission 06-12-17 Primary Care Physician: ZAINA LANDERS MD Chief Complaint The patient is a 87-year-old male admitted with a reason for visit of AMS. History of Present Illness 87 y/o male who presents today with family for apparent syncopal episode at the [facility] home that occurred this morning during breakfast. Unfortunately details of the event are not clear to the family as they were not personally present and only acquired limited information from the nursing facility, as to what they know-the pt was eating his breakfast and then slumped down in his chair quickly , unsure how long he was "out for", if he bumped his head on the table, has prodromal SOB, CP, palpitations or nausea. The family is unsure if he has been ill lately, experiencing fevers or complaints of SOB/cough. 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 The family does not think he eats well/a lot and he does look dry on exam today. He is very fatigued and even on pupillary exam he is not arousing easily, this is abnormal for him according to the family. 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 His medications have not changed recently. At baseline he is orientated and can respond "yes" and "no" but when he tries to communicate further, it is garbled and insensible. He has had prior syncopal episodes for which he has been admitted to our hospital in the past and vaso vagal secondary to his dementia seems to be the reason for those visits. The family is concerned because they state he is more fatigued this time than he has been on prior visits for syncope. Home Medications Scheduled (Multi Vitamin) 1 Tab Tab, 1 TAB PO DAILY, (Reported) (Aspirin) 81 Mg Chw, 81 MG PO DAILY, (Reported) (Ensure Enlive) 1 Liq Liq, 120 ML PO BID, (Reported) Citalopram Hydrobromide (Celexa) 20 Mg Tab, 20 MG PO DAILY, (Reported) Cyanocobalamin (Vitamin B-12) 1,000 Mcg Tab, 1,000 MCG PO DAILY, (Reported) Docusate Sod/Senna (Senna S 8.6-50 mg) 1 Tab Tab, 1 TAB PO BID, (Reported) Gabapentin (Gabapentin) 600 Mg Tab, 600 MG PO QHS, (Reported) Levothyroxine Sodium (Synthroid) 75 Mcg Tab, 75 MCG PO DAILY, (Reported) Tamsulosin Hydrochloride (Flomax) 0.4 Mg Cap, 0.4 MG PO DAILY, (Reported) Vitamin D (Vitamin D3) 1,000 Units Tab, 1,000 UNITS PO DAILY, (Reported) Scheduled PRN Acetaminophen (Tylenol) 325 Mg Tab, 650 MG PO Q4H PRN for PAIN OR FEVER, ( Reported) Alprazolam (Alprazolam) 0.25 Mg Tab, 0.25 MG PO BID PRN for ANXIETY, (Reported) Bisacodyl (Dulcolax) 10 Mg Sup, 10 MG KS DAILY PRN for CONSTIPATION, (Reported) Milk Of Magnesia (Milk of Magnesia) 1,200 Mg/15 Ml Tabatha, 30 ML PO DAILY PRN for CONSTIPATION, (Reported) Sodium Phosphate/Biphosphate (Enema 7-19 gm/118Ml) 1 Thang Thang, 1 THANG KS DAILY PRN for CONSTIPATION, (Reported) Allergies Coded Allergies: Aripiprazole (Verified Allergy, Unknown, 12/25/12) Cephalosporins (Verified Allergy, Unknown, CEFUROXIME, 12/25/12) Codeine (Verified Allergy, Unknown, 12/25/12) Meperidine (Verified Allergy, Unknown, 12/25/12) Simvastatin (Verified Allergy, Unknown, 12/25/12) Amitriptyline (Verified Adverse Reaction, Mild, hallucinations, 11/28/16) Carbidopa w/Levodopa (Verified Adverse Reaction, Mild, caused severe fatigue, 11/28/16) Donepezil (Verified Adverse Reaction, Mild, increased confusion, 11/28/16) Memantine (Verified Adverse Reaction, Mild, confusion, 11/28/16) Perphenazine (Verified Adverse Reaction, Mild, hallucinations, 11/28/16) Venlafaxine (Verified Adverse Reaction, Mild, headache, 11/28/16) Zonisamide (Verified Adverse Reaction, Mild, confusion, insomnia, 11/28/16) Past Medical History Medical History parkinsons lewy body dementia hypothyroid HTN depression hx prior stroke Surgical History tonsillectomy Family History Significant Family History: Heart disease (alejandro from [place] in her 80's) Social History * Smoker: Denies Alcohol: Denies Drugs: denies Psychosocial History: Dementia resident at [facility] keep Review of Symptoms Constitutional: Reports: Other (ROS UNOBTAINABLE DUE TO PT'S FATIGUE) Physical Examination General Exam: Positive: Moderate Distress (PT IS trying to sleep, WILL NOT OPEN HIS EYES, except to and is AROUSABLE TO loud voice and sternal STIMULATION) , Negative: Alert, Cooperative Eye Exam: Positive: PERRLA, Conjunctiva & lids normal, Negative: Sclera icteric ENT Exam: Positive: Atraumatic, Pharynx Normal, Tongue Midline, Nares Patent, Negative: Mucous membr. moist/pink (DRY MUCUS MEMBRANES/TONGUE) Neck Exam: Positive: Supple, Negative: JVD Chest Exam: Positive: Clear to auscultation, Diminished, Negative: Rales, Rhonchi, Wheezing Heart Exam: Positive: Rate Normal, Normal S1, Normal S2, Negative: Gallops, Murmurs, Rubs Telemetry: Positive: No significant arrhythmia Abdomen Exam: Positive: Normal bowel sounds, Soft, Negative: Tenderness, Hepatospenomegaly Extremity Exam: Positive: Normal pulses, Negative: Clubbing, Cyanosis, Edema Neuro Exam: Positive: Other (NO FOCAL DEFICITS ON NEURO EXAM FOUND) Psych Exam: Negative: Mental status NL, Mood NL (pt mre fatigued than normal as per family), Oriented x 3 (is not aaox3) Vital Signs Vital Signs Date Time Temp Pulse Resp B/P (MAP) Pulse Ox O2 Delivery O2 Flow Rate FiO2 06/12/17 09:20 06/12/17 09:20 Room Air 06/12/17 09:07 98.0 69 18 93 Laboratory Data Labs 24H Laboratory Tests 2 06/12/17 10:01: White Blood Count 11.3H, Red Blood Count 3.92L, Hemoglobin 11.7L, Hematocrit 34.9L, Mean Corpuscular Volume 89.0, Mean Corpuscular Hemoglobin 29.8, Mean Corpuscular Hemoglobin Concent 33.5, Red Cell Distribution Width 15.6H, Platelet Count , Monocytes # (Auto) , Neutrophils 86H, Lymphocytes (Manual) 11L , Monocytes (Manual) 1, Eosinophils (Manual) 2, Platelet Estimate INVALID, Red Blood Cell Morphology NORMAL, Anion Gap 7L, Glomerular Filtration Rate > 60.0, Blood Urea Nitrogen 14, Creatinine 0.88, Sodium Level 134L, Potassium Level 4.3 , Chloride Level 99, Carbon Dioxide Level 28, Calcium Level 9.4, Total Creatine Kinase 27L, Creatine Kinase MB 1.0, Creatine Kinase MB Relative Index 3.70, Troponin I < 0.02, Thyroid Stimulating Hormone (TSH) 1.450 CBC/BMP Laboratory Tests 06/12/17 10:01 Red Blood Count 3.92 L, Mean Corpuscular Volume 89.0, Mean Corpuscular Hemoglobin 29.8, Mean Corpuscular Hemoglobin Concent 33.5, Red Cell Distribution Width 15.6 H, Monocytes # (Auto) , Calcium Level 9.4, Total Creatine Kinase 27 L Problems (1) Syncope Status: Acute Response to Treatment: Stable Problem Text: pt's EKG in ED did not demonstrate changes from prior in February 2017, no concerning signs of ischemia CT head showed small vessel ischemic disease and moderate volume loss Pt normally follows with local neurology group, they have been consulted- greatly appreciate their recommendations-will obtain brain MRI and pt will f/u outpt with neurology on d/c will check UA/UC-urine in varghese did look dark, not concerning for blood but for dehydration pending MRA carotids, MRI brain and EEG neuro check q4h Ammonia level pending 81 ASPIRIN precaution TSH level pending Will begin NS at 80 for pt., did seem dry one exam orthostatics q8h aspiration precautions and soft diet will be stopping pts alprazolam and celexa at this time due to fatigue/AMS (2) Parkinsons Status: Acute Response to Treatment: Stable Problem Text: stable-continue to monitor speech eval. according to family and past provider notes,h as tried medications for parkinsons in the past will ill effect-excessive sedation according to family soft diet aspiration precautions (3) Hypothyroid Status: Acute Response to Treatment: Stable Problem Text: will check tsh c/w pts home med (4) HTN (hypertension) Status: Acute Response to Treatment: Stable Problem Text: 143/65 would hold BP medications at this time (5) Depression Status: Acute Response to Treatment: Stable Problem Text: will hold pts celexa right now until he is less fatigued (6) DVT prophylaxis Status: Acute Response to Treatment: Stable Problem Text: heparin Plan / VTE VTE Prophylaxis Ordered?: Yes GME ATTESTATION GME ATTESTATION My preceptor for this patient encounter was physically present in the building during the encounter and was fully available. As needed, all aspects of the patient interview, examination, medical decision making process, and medical care plan development were reviewed and approved by the preceptor. Preceptor is aware and concurs with the plan as stated in the body of this note and will attest to such by his/her cosignature. YADIEL SMALL DO Jun 12, 2017 14:12
[2017-06-12 16:10] VITALS: BP 100/54
[2017-06-12] MEDS: TAMSULOSIN 0.4 MG CAP PO SCH (16:22)
[2017-06-12] MEDS: ASPIRIN 81 MG CHEW TABLET PO SCH (16:23)
[2017-06-12] MEDS: SENOKOT S TAB PO SCH ×2 (16:23→21:59)
[2017-06-12] MEDS: CYANOCOBALAMIN 500 MCG TAB PO SCH (16:23)
[2017-06-12] MEDS: LEVOTHYROXINE 75MCG TABLET (0.075MG) PO SCH (16:24)
[2017-06-12] MEDS: ACETAMINOPHEN TAB 650MG DOSE (2X325MG) PO PRN (16:24)
[2017-06-12] MEDS: VITAMIN D 1,000 INTERNATIONAL UNITS TABLET PO SCH (16:24)
--- NOTE | 2017-06-12 18:07 | ECGEPIP ---
Stationary ECG Study [facility] - ED Test Date: 2017-06-12 Pat Name: JOBY CONNOR Department: Room: - Gender: M Dietetic Assistant: rosibel : [id number] Requested By: Genet Moore Order Number: [id number] Reading MD: Sai Johnson Measurements Intervals Duck Rate: 70 P: 60 DC: 211 QRS: -13 QRSD: 76 T: 25 QT: 379 QTc: 409 Interpretive Statements SINUS RHYTHM WITH FIRST DEGREE AV BLOCK SIMILAR TO 02/28/17 Electronically Signed On 06-12-2017 18:07:23 EDT by Sai Johnson
[2017-06-12 20:00] VITALS: BP_SYST 136; BP_SYST 144; BP_DIAS 62; BP_DIAS 68
--- NOTE | 2017-06-12 20:50 | REPUSA ---
MRI of the brain. Clinical history: syncope. Technique: Multiecho multiplanar MRI images of the brain were obtained without administration of cont rast. Diffusion weighted images with ADC mapping was also obtained. Findings: The ventricles and sulci are symmetric bilaterally. The brain parenchyma demonstrates moderate diffus e periventricular and subcortical white matter T2 hyperintensity. There is no midline shift, mass eff ect, or extra-axial fluid collection. The midline intracranial structures do not demonstrate any inna s abnormalities. The cervical cranial junction is intact. The orbits are unremarkable. The visualized paranasal sinuses and mastoid air cells are clear. The osseous structures and superficial soft tissu es are unremarkable. The vascular structures demonstrate appropriate flow voids. Impression: No evidence of acute infarct or hemorrhage. Moderate age-related atrophy and chronic smal l vessel ischemic disease.
--- NOTE | 2017-06-12 21:00 | REPUSA ---
MRI of the brain clinical history: syncope. Comparison: MRI, 06/12/2017. Technique: [id number] MRA images of the brain were obtained without administration of contrast. 3 -D MIP images were also obtained. Findings: The vascular structures extending from the distal carotid and vertebrobasilar arterial syst ems, through the [place] of [place], demonstrate normal caliber and contour. There is no evidence of an eurysm, stenosis, or thrombosis. Impression: Unremarkable MRA examination of the brain.
[2017-06-13] VITALS (7 sets, daily range): BP systolic 113–145; BP diastolic 56–74
[2017-06-13] MEDS: NS 1,000 ML IV SCH (02:30)
[2017-06-13 06:20] LABS: MEAN CORPUSCULAR HEMOGLOBIN 29.7 pg (27.0-33.0); MEAN CORPUSCULAR HGB CONC 33.5 g/dl (32.0-36.5); MEAN CORPUSCULAR VOLUME 88.5 fl (80.0-96.0); PLATELET COUNT, AUTOMATED 143 10^3/uL (150-450); RED CELL DISTRIBUTION WIDTH 15.5 % (11.5-14.5); WHITE BLOOD COUNT 8.9 10^3/uL (4.0-10.0)
[2017-06-13] MEDS: HEPARIN SOD (PORCINE) 5000 UNITS/ML VIAL SC SCH ×3 (06:25→22:08)
[2017-06-13] MEDS: LEVOTHYROXINE 75MCG TABLET (0.075MG) PO SCH (06:25)
[2017-06-13 06:43] LABS: ANION GAP 8 MEQ/L (8-16); BLOOD UREA NITROGEN 16 MG/DL (7-18); CALCIUM LEVEL 8.9 MG/DL (8.8-10.2); CARBON DIOXIDE LEVEL 27 MEQ/L (21-32); CHLORIDE LEVEL 102 MEQ/L (98-107); CREATININE FOR GFR 0.77 MG/DL (0.70-1.30); GLOMERULAR FILTRATION RATE > 60.0 (>35); GLUCOSE, FASTING 98 MG/DL (83-110); POTASSIUM SERUM 3.7 MEQ/L (3.5-5.1); SODIUM LEVEL 137 MEQ/L (136-145)
[2017-06-13 07:39] LABS: ADD MANUAL DIFFER YES; DIFF SLIDE NUMBER 52
[2017-06-13 07:41] LABS: EOSINOPHILS 6 % (0-5)
[2017-06-13 07:42] LABS: PLATELET CLUMPS LARGE AMT
[2017-06-13] MEDS: CYANOCOBALAMIN 500 MCG TAB PO SCH (10:30)
[2017-06-13] MEDS: ACETAMINOPHEN TAB 650MG DOSE (2X325MG) PO PRN ×2 (10:30→18:26)
[2017-06-13] MEDS: SENOKOT S TAB PO SCH ×2 (10:30→21:52)
[2017-06-13] MEDS: VITAMIN D 1,000 INTERNATIONAL UNITS TABLET PO SCH (10:30)
[2017-06-13] MEDS: ASPIRIN 81 MG CHEW TABLET PO SCH (10:30)
[2017-06-13] MEDS: TAMSULOSIN 0.4 MG CAP PO SCH (10:30)
--- NOTE | 2017-06-13 10:43 | IPNPDOC ---
Subjective Date Seen The patient was seen on 06/13/17. Subjective Chief Complaint/HPI The patient is a 87-year-old male admitted with a reason for visit of Syncope. General: Reports: ROS Unobtainable (pt is awake and alert, but does not answer questions other than to say he is in no pain) Pulmonary: Denies: Dyspnea, Cough Objective Physical Examination General Exam: Positive: Cooperative, No Acute Distress, Negative: Alert, Moderate Distress Eye Exam: Positive: PERRLA, Conjunctiva & lids normal, EOMI, Negative: Sclera icteric, Ptosis ENT Exam: Positive: Atraumatic, Pharynx Normal, Tongue Midline, Nares Patent, Negative: Mucous membr. moist/pink (DRY MUCUS MEMBRANES/TONGUE) Neck Exam: Positive: Supple, Negative: JVD Chest Exam: Positive: Clear to auscultation, Diminished, Negative: Rales, Rhonchi, Wheezing Heart Exam: Positive: Rate Normal, Normal S1, Normal S2, Negative: Gallops, Murmurs, Rubs Telemetry: Positive: No significant arrhythmia Abdomen Exam: Positive: Normal bowel sounds, Soft, Negative: Tenderness, Hepatospenomegaly Male Exam: Negative: Lesions, Edema Extremity Exam: Positive: Normal pulses, Negative: Clubbing, Cyanosis, Edema Neuro Exam: Positive: Other (NO FOCAL DEFICITS ON NEURO EXAM FOUND) Psych Exam: Negative: Mental status NL, Oriented x 3 Assessment /Plan Problems (1) Syncope Status: Acute Response to Treatment: Stable Problem Text: MRI brain did not show focal area of concern to be causative for syncope MRA, EEG pending Neurology on board-appreciate their help pts EKG in ED did not demonstrate changes from prior in February 2017, no concerning signs of ischemia CT head showed small vessel ischemic disease and moderate volume loss Pt normally follows with local neurology group, they have been consulted- greatly appreciate their recommendations-will obtain brain MRI and pt will f/u outpt with neurology on d/c UA did demonstrate concern for UTI- will begin ciprofloxacin. Apparently rocephin allergy as per was many years ago in hospital in [place], cannot remember which reaction it was specifically -urine in varghese did look darker again today, not concerning for blood but for dehydration-urine culture is still pending neuro check q4h Ammonia and TSH WNL C/w IV hydration., did seem dry one exam orthostatics q8h aspiration precautions and soft diet will be stopping pts alprazolam and celexa at this time due to fatigue/AMS. (2) UTI (urinary tract infection) Status: Acute Response to Treatment: Stable Problem Text: SECONDARY to catheter chronic varghese UA appears to be infected pt has chronic varghese for urinary retention urine culture pending, blood cx pending will begin ciprofloxacin, slight increase in temp overnight to 100.2 could be cause for change in mentation as per family in ED WBC 8.9 (3) Parkinsons Status: Acute Response to Treatment: Stable Problem Text: stable-continue to monitor speech eval. pending according to family and past provider notes, has tried medications for parkinsons in the past will ill effect-excessive sedation according to family soft diet aspiration precautions (4) Hypothyroid Status: Acute Response to Treatment: Stable Problem Text: TSH WNL c/w pts home med (5) HTN (hypertension) Status: Acute Response to Treatment: Stable Problem Text: 145/65 would hold BP medications at this time (6) Depression Status: Acute Response to Treatment: Stable Problem Text: will hold pts celexa right now until he is less fatigued (7) DVT prophylaxis Status: Acute Response to Treatment: Stable Problem Text: heparin Plan/VTE VTE Prophylaxis Ordered?: Yes VS, I&O, 24H, Fishbone Vital Signs/I&O Vital Signs Date Time Temp Pulse Resp B/P (MAP) Pulse Ox O2 Delivery O2 Flow Rate FiO2 06/13/17 08:00 99.2 79 18 145/65 (91) 94 Room Air I&O- Last 24 Hours up to 6 AM 06/14/17 06:00 Intake Total 0 ml Output Total 0 ml Balance 0 ml Laboratory Data 24H LABS Laboratory Tests 2 06/12/17 14:56: Ammonia 21, Thyroid Stimulating Hormone (TSH) 0.762 06/12/17 16:35: Urine Appearance TURBIDH, Urine Color JEANNIE, Urine pH 6.0, Urine Specific [place] 1.010, Urine Protein 2+H, Urine Glucose (UA) NEGATIVE, Urine Ketones NEGATIVE, Urine Urobilinogen 0.2, Urine Bilirubin NEGATIVE, Urine Leukocyte Esterase 3+H, Urine Blood 2+H, Urine Nitrite NEGATIVE, Urine WBC (Auto) TNTCH, Urine RBC (Auto) 10H, Urine Hyaline Casts (Auto) 0, Urine Bacteria (Auto) 2+H, Urine Squamous Epithelial Cells 0, Urine Sperm (Auto) 06/13/17 05:36: White Blood Count 8.9, Red Blood Count 3.57L, Hemoglobin 10.6L, Hematocrit 31.6L , Mean Corpuscular Volume 88.5, Mean Corpuscular Hemoglobin 29.7, Mean Corpuscular Hemoglobin Concent 33.5, Red Cell Distribution Width 15.5H, Platelet Count 143L, Monocytes # (Auto) , Neutrophils 70, Lymphocytes (Manual) 12L, Monocytes (Manual) 12H, Eosinophils (Manual) 6H, Myelocytes , Platelet Estimate NORMAL, Clumped Platelets LARGE AMT, Anion Gap 8, Glomerular Filtration Rate > 60.0, Blood Urea Nitrogen 16, Creatinine 0.77, Sodium Level 137, Potassium Level 3.7, Chloride Level 102, Carbon Dioxide Level 27, Calcium Level 8.9 CBC/BMP Laboratory Tests 06/13/17 05:36 Red Blood Count 3.57 L, Mean Corpuscular Volume 88.5, Mean Corpuscular Hemoglobin 29.7, Mean Corpuscular Hemoglobin Concent 33.5, Red Cell Distribution Width 15.5 H, Monocytes # (Auto) , Calcium Level 8.9 Microbiology Microbiology 06/13/17 Blood Culture, Received Pending 06/13/17 Blood Culture, Received Pending 06/12/17 Urine Culture, Received Pending GME ATTESTATION GME ATTESTATION My preceptor for this patient encounter was physically present in the building during the encounter and was fully available. As needed, all aspects of the patient interview, examination, medical decision making process, and medical care plan development were reviewed and approved by the preceptor. Preceptor is aware and concurs with the plan as stated in the body of this note and will attest to such by his/her cosignature. ATTENDING NOTE AMS/syncope from Chronic varghese cath related UTI is on the differential. Per patient's family member, patient mental status is not at his baseline. Will start empirical treatment and continue monitoring patient mental status. YADIEL SMALL DO Jun 13, 2017 10:43 AUSTYN MCKOY DO Jun 28, 2017 17:29
[2017-06-13] MEDS: CIPROFLOXACIN 400 MG in APPROPRIATE DILUENT 1 EA IV SCH ×2 (11:37→22:08)
[2017-06-14] VITALS: BP 112/56
[2017-06-14 04:00] VITALS: BP 112/56
[2017-06-14 05:24] LABS: BASO % 0.6 % (0.0-1.0); EOS # 0.3 10^3/uL (0.0-0.50); EOS % 4.5 % (0.0-3.0); IMMATURE GRANULOCYTE % 0.6 % (0-0); LYMPH # 0.9 10^3/uL (1.5-4.5); LYMPH % 13.8 % (24.0-44.0); MEAN CORPUSCULAR HGB CONC 32.9 g/dl (32.0-36.5); MEAN CORPUSCULAR VOLUME 88.1 fl (80.0-96.0); MONO # 1.2 10^3/uL (0.0-0.8); MONO % 17.2 % (0.0-5.0); NEUTROPHILS # 4.2 10^3/uL (1.8-7.7); NEUTROPHILS % 63.3 % (36.0-66.0); RED CELL DISTRIBUTION WIDTH 15.1 % (11.5-14.5); WHITE BLOOD COUNT 6.7 10^3/uL (4.0-10.0)
[2017-06-14 05:46] LABS: ANION GAP 7 MEQ/L (8-16); BLOOD UREA NITROGEN 16 MG/DL (7-18); CALCIUM LEVEL 8.7 MG/DL (8.8-10.2); CARBON DIOXIDE LEVEL 27 MEQ/L (21-32); CHLORIDE LEVEL 102 MEQ/L (98-107); CREATININE FOR GFR 0.79 MG/DL (0.70-1.30); GLOMERULAR FILTRATION RATE > 60.0 (>35); GLUCOSE, FASTING 93 MG/DL (83-110); POTASSIUM SERUM 3.5 MEQ/L (3.5-5.1); SODIUM LEVEL 136 MEQ/L (136-145)
[2017-06-14] MEDS: LEVOTHYROXINE 75MCG TABLET (0.075MG) PO SCH (06:15)
[2017-06-14] MEDS: HEPARIN SOD (PORCINE) 5000 UNITS/ML VIAL SC SCH ×3 (06:16→21:29)
[2017-06-14 08:00] VITALS: BP_SYST 113; BP_SYST 117; BP_SYST 118; BP_SYST 120; BP_DIAS 56; BP_DIAS 58; BP_DIAS 59; BP_DIAS 64
--- NOTE | 2017-06-14 08:02 | IPNPDOC ---
Subjective Date Seen The patient was seen on 06/14/17. Subjective Chief Complaint/HPI The patient is a 87-year-old male admitted with a reason for visit of Syncope. General: Reports: ROS Unobtainable (pt can not communicate sensible reponses) Pulmonary: Denies: Dyspnea Cardiovascular: Denies: Chest Pain Objective Physical Examination General Exam: Positive: Cooperative, Moderate Distress (pt is alert but sleepy this AM. able to communicate minimally with some "yes,no" answers), Negative: Alert Eye Exam: Positive: PERRLA, Conjunctiva & lids normal, EOMI, Negative: Sclera icteric, Ptosis ENT Exam: Positive: Atraumatic, Pharynx Normal, Tongue Midline, Nares Patent, Negative: Mucous membr. moist/pink (DRY MUCUS MEMBRANES/TONGUE) Neck Exam: Positive: Supple, Negative: JVD Chest Exam: Positive: Clear to auscultation, Diminished, Negative: Rales, Rhonchi, Wheezing Heart Exam: Positive: Rate Normal, Normal S1, Normal S2, Negative: Gallops, Murmurs, Rubs Telemetry: Positive: No significant arrhythmia Abdomen Exam: Positive: Normal bowel sounds, Soft, Negative: Tenderness, Hepatospenomegaly Male Exam: Negative: Lesions, Edema Extremity Exam: Positive: Normal pulses, Negative: Clubbing, Cyanosis, Edema Neuro Exam: Positive: Other (NO FOCAL DEFICITS ON NEURO EXAM FOUND) Psych Exam: Negative: Mental status NL, Oriented x 3 Assessment /Plan Problems (1) Syncope Status: Acute Response to Treatment: Stable Problem Text: MRI brain did not show focal area of concern to be causative for syncope MRA, EEG pending Neurology on board-appreciate their help pts EKG in ED did not demonstrate changes from prior in February 2017, no concerning signs of ischemia CT head showed small vessel ischemic disease and moderate volume loss Pt normally follows with local neurology group, they have been consulted- greatly appreciate their recommendations-will obtain brain MRI and pt will f/u outpt with neurology on d/c UA did demonstrate concern for UTI- c/w ciprofloxacin. -Apparently rocephin allergy as per was many years ago in hospital in [place], cannot remember which reaction it was specifically -urine in varghese did look darker again today, not concerning for blood but for dehydration-urine culture is still pending neuro check q4h Ammonia and TSH WNL c/w IV hydration., did seem dry on exam orthostatics q8h aspiration precautions and soft diet will be stopping pts alprazolam and celexa at this time due to fatigue/AMS (2) UTI (urinary tract infection) Status: Acute Response to Treatment: Stable Problem Text: SECONDARY to catheter chronic varghese UA appears to be infected pt has chronic varghese for urinary retention could be cause for change in mentation as per family urine culture pending, blood cx pending c/w ciprofloxacin, no fevers reported overnight WBC 6.7 (3) Parkinsons Status: Acute Response to Treatment: Stable Problem Text: stable-continue to monitor speech eval. recommended thin liquids and mechanical soft diet according to family and past provider notes, has tried medications for parkinsons in the past will ill effect-excessive sedation according to family c/w aspiration precautions (4) Hypothyroid Status: Acute Response to Treatment: Stable Problem Text: TSH WNL c/w pts home med (5) HTN (hypertension) Status: Acute Response to Treatment: Stable Problem Text: 112/56 would hold BP medications at this time (6) Depression Status: Acute Response to Treatment: Stable Problem Text: continue to hold pts celexa (7) DVT prophylaxis Status: Acute Response to Treatment: Stable Problem Text: heparin Plan/VTE VTE Prophylaxis Ordered?: Yes VS, I&O, [facility] Vital Signs/I&O Vital Signs Date Time Temp Pulse Resp B/P (MAP) Pulse Ox O2 Delivery O2 Flow Rate FiO2 06/14/17 04:00 Room Air 06/14/17 04:00 98.3 68 18 112/56 (74) 95 Laboratory Data 24H LABS Laboratory Tests 2 06/14/17 05:10: White Blood Count 6.7, Red Blood Count 3.45L, Hemoglobin 10.0L, Hematocrit 30.4L , Mean Corpuscular Volume 88.1, Mean Corpuscular Hemoglobin 29.0, Mean Corpuscular Hemoglobin Concent 32.9, Red Cell Distribution Width 15.1H, Platelet Count , Neutrophils (%) (Auto) 63.3, Lymphocytes (%) (Auto) 13.8L, Monocytes (%) (Auto) 17.2H, Eosinophils (%) (Auto) 4.5H, Basophils (%) (Auto) 0.6, Neutrophils # (Auto) 4.2, Lymphocytes # (Auto) 0.9L, Monocytes # (Auto) 1.2H, Eosinophils # (Auto) 0.3, Basophils # (Auto) 0.0, Immature Granulocyte # ( Auto) 0.0, Nucleated Red Blood Cells % (auto) 0.0, Anion Gap 7L, Glomerular Filtration Rate > 60.0, Blood Urea Nitrogen 16, Creatinine 0.79, Sodium Level 136, Potassium Level 3.5, Chloride Level 102, Carbon Dioxide Level 27, Calcium Level 8.7L CBC/BMP Laboratory Tests 06/14/17 05:10 Red Blood Count 3.45 L, Mean Corpuscular Volume 88.1, Mean Corpuscular Hemoglobin 29.0, Mean Corpuscular Hemoglobin Concent 32.9, Red Cell Distribution Width 15.1 H, Neutrophils (%) (Auto) 63.3, Lymphocytes (%) (Auto) 13.8 L, Monocytes (%) (Auto) 17.2 H, Eosinophils (%) (Auto) 4.5 H, Basophils (% ) (Auto) 0.6, Neutrophils # (Auto) 4.2, Lymphocytes # (Auto) 0.9 L, Monocytes # (Auto) 1.2 H, Eosinophils # (Auto) 0.3, Basophils # (Auto) 0.0, Calcium Level 8.7 L Microbiology Microbiology 06/13/17 Blood Culture, Received Pending 06/13/17 Blood Culture, Received Pending 06/12/17 Urine Culture, Received Pending GME ATTESTATION GME ATTESTATION My preceptor for this patient encounter was physically present in the building during the encounter and was fully available. As needed, all aspects of the patient interview, examination, medical decision making process, and medical care plan development were reviewed and approved by the preceptor. Preceptor is aware and concurs with the plan as stated in the body of this note and will attest to such by his/her cosignature. YADIEL SMALL DO Jun 14, 2017 08:02
[2017-06-14] MEDS: SENOKOT S TAB PO SCH ×2 (10:32→21:29)
[2017-06-14] MEDS: VITAMIN D 1,000 INTERNATIONAL UNITS TABLET PO SCH (10:32)
[2017-06-14] MEDS: TAMSULOSIN 0.4 MG CAP PO SCH (10:32)
[2017-06-14] MEDS: CIPROFLOXACIN 400 MG in APPROPRIATE DILUENT 1 EA IV SCH ×2 (10:32→22:35)
[2017-06-14] MEDS: CYANOCOBALAMIN 500 MCG TAB PO SCH (10:32)
[2017-06-14] MEDS: ASPIRIN 81 MG CHEW TABLET PO SCH (10:32)
[2017-06-14 12:00] VITALS: BP 124/60
[2017-06-14 15:05] VITALS: BP 133/59
[2017-06-14 22:58] VITALS: BP_SYST 126; BP_SYST 152; BP_SYST 154; BP_DIAS 100; BP_DIAS 76; BP_DIAS 78
[2017-06-15] MEDS: HEPARIN SOD (PORCINE) 5000 UNITS/ML VIAL SC SCH (05:54)
[2017-06-15] MEDS: LEVOTHYROXINE 75MCG TABLET (0.075MG) PO SCH (05:54)
[2017-06-15 05:57] VITALS: BP_SYST 139; BP_SYST 150; BP_SYST 152; BP_DIAS 68; BP_DIAS 69; BP_DIAS 78
[2017-06-15 07:00] LABS: BASO % 0.7 % (0.0-1.0); EOS # 0.3 10^3/uL (0.0-0.50); EOS % 5.7 % (0.0-3.0); IMMATURE GRANULOCYTE % 0.4 % (0-0); LYMPH # 0.9 10^3/uL (1.5-4.5); LYMPH % 16.3 % (24.0-44.0); MEAN CORPUSCULAR VOLUME 87.9 fl (80.0-96.0); MONO # 0.8 10^3/uL (0.0-0.8); MONO % 14.7 % (0.0-5.0); NEUTROPHILS # 3.5 10^3/uL (1.8-7.7); NEUTROPHILS % 62.2 % (36.0-66.0); PLATELET COUNT, AUTOMATED 181 10^3/uL (150-450); WHITE BLOOD COUNT 5.6 10^3/uL (4.0-10.0)
[2017-06-15 07:29] LABS: ANION GAP 5 MEQ/L (8-16); BLOOD UREA NITROGEN 16 MG/DL (7-18); CALCIUM LEVEL 9.1 MG/DL (8.8-10.2); CARBON DIOXIDE LEVEL 30 MEQ/L (21-32); CHLORIDE LEVEL 102 MEQ/L (98-107); CREATININE FOR GFR 0.82 MG/DL (0.70-1.30); GLOMERULAR FILTRATION RATE > 60.0 (>35); GLUCOSE, FASTING 101 MG/DL (83-110); POTASSIUM SERUM 3.6 MEQ/L (3.5-5.1); SODIUM LEVEL 137 MEQ/L (136-145)
--- NOTE | 2017-06-15 07:42 | IPNPDOC ---
Subjective Date Seen The patient was seen on 06/15/17. Subjective Chief Complaint/HPI The patient is a 87-year-old male admitted with a reason for visit of Syncope. General: Reports: ROS Unobtainable (pt still makes non-sensible responses, chronic and baseline according to family) Pulmonary: Denies: Dyspnea Cardiovascular: Denies: Chest Pain Objective Physical Examination General Exam: Positive: Cooperative, Moderate Distress (pt. is alert but sleepy this AM. able to communicate minimally with some "yes,no" answers), Negative: Alert Eye Exam: Positive: PERRLA, Conjunctiva & lids normal, EOMI, Negative: Sclera icteric, Ptosis ENT Exam: Positive: Atraumatic, Pharynx Normal, Tongue Midline, Nares Patent, Negative: Mucous membr. moist/pink (DRY MUCUS MEMBRANES/TONGUE) Neck Exam: Positive: Supple, Negative: JVD Chest Exam: Positive: Clear to auscultation, Diminished, Negative: Rales, Rhonchi, Wheezing Heart Exam: Positive: Rate Normal, Normal S1, Normal S2, Negative: Gallops, Murmurs, Rubs Telemetry: Positive: No significant arrhythmia Abdomen Exam: Positive: Normal bowel sounds, Soft, Negative: Tenderness, Hepatospenomegaly Male Exam: Negative: Lesions, Edema Extremity Exam: Positive: Normal pulses, Negative: Clubbing, Cyanosis, Edema Neuro Exam: Positive: Other (NO FOCAL DEFICITS ON NEURO EXAM FOUND) Psych Exam: Negative: Mental status NL, Oriented x 3 Assessment /Plan Problems (1) Syncope Status: Acute Response to Treatment: Stable Problem Text: pt's EKG inhouse did not demonstrate changes from prior in February 2017, no concerning signs of ischemia CT head showed small vessel ischemic disease and moderate volume loss Pt normally follows with local neurology group, they have been consulted- greatly appreciate their recommendations-will obtain brain MRI and pt will f/u outpt with neurology on d/c will check UA/UC-urine in varghese did look dark, not concerning for blood but for dehydration-possible reason for initial AMS as per family pending MRA carotids, EEG MRI No evidence of acute infarct or hemorrhage. Moderate age-related atrophy and chronic small vessel ischemic disease. MRA brain unremarkable EEG pending neuro check q4h Ammonia level pending 81 ASPIRIN precaution TSH level pending Will begin NS at 80 for pt. orthostatics q8h, neg. aspiration precautions and soft diet (2) Parkinsons Status: Acute Response to Treatment: Stable Problem Text: stable-continue to monitor, back to baseline mentation as per family speech eval. according to family and past provider notes,has tried medications for parkinsons in the past will ill effect-excessive sedation according to family soft diet aspiration precautions (3) Hypothyroid Status: Acute Response to Treatment: Stable Problem Text: will check tsh c/w pts home med (4) HTN (hypertension) Status: Acute Response to Treatment: Stable Problem Text: BP has been stable, c/w hold BP medications at this time (5) Depression Status: Acute Response to Treatment: Stable Problem Text: will hold pts celexa right now until he is less fatigued (6) DVT prophylaxis Status: Acute Response to Treatment: Stable Problem Text: heparin Plan/VTE VTE Prophylaxis Ordered?: Yes VS, I&O, 24H, Fishbone Vital Signs/I&O Vital Signs Date Time Temp Pulse Resp B/P (MAP) Pulse Ox O2 Delivery O2 Flow Rate FiO2 06/15/17 05:57 78 152/68 (96) 84 150/69 (96) 91 139/78 (98) 06/14/17 22:58 98.9 18 97 Room Air Laboratory Data 24H LABS Laboratory Tests 2 06/15/17 06:34: White Blood Count 5.6, Red Blood Count 3.65L, Hemoglobin 10.6L, Hematocrit 32.1L , Mean Corpuscular Volume 87.9, Mean Corpuscular Hemoglobin 29.0, Mean Corpuscular Hemoglobin Concent 33.0, Red Cell Distribution Width 15.0H, Platelet Count 181, Neutrophils (%) (Auto) 62.2, Lymphocytes (%) (Auto) 16.3L, Monocytes (%) (Auto) 14.7H, Eosinophils (%) (Auto) 5.7H, Basophils (%) (Auto) 0.7, Neutrophils # (Auto) 3.5, Lymphocytes # (Auto) 0.9L, Monocytes # (Auto) 0.8 , Eosinophils # (Auto) 0.3, Basophils # (Auto) 0.0, Immature Granulocyte # (Auto ) 0.0, Nucleated Red Blood Cells % (auto) 0.0, Anion Gap 5L, Glomerular Filtration Rate > 60.0, Blood Urea Nitrogen 16, Creatinine 0.82, Sodium Level 137, Potassium Level 3.6, Chloride Level 102, Carbon Dioxide Level 30, Calcium Level 9.1 CBC/BMP Laboratory Tests 06/15/17 06:34 Red Blood Count 3.65 L, Mean Corpuscular Volume 87.9, Mean Corpuscular Hemoglobin 29.0, Mean Corpuscular Hemoglobin Concent 33.0, Red Cell Distribution Width 15.0 H, Neutrophils (%) (Auto) 62.2, Lymphocytes (%) (Auto) 16.3 L, Monocytes (%) (Auto) 14.7 H, Eosinophils (%) (Auto) 5.7 H, Basophils (% ) (Auto) 0.7, Neutrophils # (Auto) 3.5, Lymphocytes # (Auto) 0.9 L, Monocytes # (Auto) 0.8, Eosinophils # (Auto) 0.3, Basophils # (Auto) 0.0, Calcium Level 9.1 Microbiology Microbiology 06/13/17 Blood Culture - Preliminary, Resulted No growth after 24 hours . All specim... 06/13/17 Blood Culture - Preliminary, Resulted No growth after 24 hours . All specim... 06/12/17 Urine Culture, Received Pending GME ATTESTATION GME ATTESTATION My preceptor for this patient encounter was physically present in the building during the encounter and was fully available. As needed, all aspects of the patient interview, examination, medical decision making process, and medical care plan development were reviewed and approved by the preceptor. Preceptor is aware and concurs with the plan as stated in the body of this note and will attest to such by his/her cosignature. YADIEL SMALL DO Jun 15, 2017 07:42 AUSTYN MCKOY DO Jul 04, 2017 23:32
[2017-06-15] MEDS: ASPIRIN 81 MG CHEW TABLET PO SCH (09:21)
[2017-06-15] MEDS: CYANOCOBALAMIN 500 MCG TAB PO SCH (09:21)
[2017-06-15] MEDS: VITAMIN D 1,000 INTERNATIONAL UNITS TABLET PO SCH (09:21)
[2017-06-15] MEDS: SENOKOT S TAB PO SCH (09:21)
[2017-06-15] MEDS: TAMSULOSIN 0.4 MG CAP PO SCH (09:21)
[2017-06-15] MEDS ORDERED: CIPR500T3 PO (09:45)
--- NOTE | 2017-06-15 10:09 | DS.PDOC ---
Discharge Summary General Date of Admission Jun 12, 2017 at 12:33 Date of Discharge 06-15-17 Primary Care Physician: ZAINA LANDERS MD Discharge Summary PROCEDURES PERFORMED DURING STAY: None ADMITTING DIAGNOSES: 1. Syncope 2. Parkinsons 3. Hypothyroidism 4. HTN 5. Depression DISCHARGE DIAGNOSES: 1. Syncope 2. Parkinsons 3. Hypothyroidism 4. HTN 5. Depression 6. UTI 2/2 chronic varghese COMPLICATIONS/CHIEF COMPLAINT: Syncope. HISTORY OF PRESENT ILLNESS: 87 y/o male presented to ED on 06-12-17 with complaint from family of [facility], apparently he slumped down in chair at the breakfast table. HOSPITAL COURSE: The pt. was admitted to PCU, EKG performed during his stay to determine if cardiac etiology was reason for his passing out episode. Apparently pt. has had numerous episodes in his past medical hx where he has sustained vaso-vagal episodes with no cardiac cause found. MRA, MRI and CT brain were unrevealing for intracranial mass or bleed to account for the syncope. He did have a positive UA and has chronic varghese catheter it was thought that his change in mentation could be contributed to this, as such antibiotic coverage was started for pt. and he will be d/c on abx to complete. Blood cx negative. Pts family had stated seemed pt was at baseline mentation at the time of discharge. DISCHARGE MEDICATIONS: Please see below. ALLERGIES: Please see below. PHYSICAL EXAMINATION ON DISCHARGE: VITAL SIGNS: Please see below. GENERAL: sitting in bed comfortably, alert, not orientated, cannot seem to get the words out, can say yes and no without difficulty. NAD HEENT: nares patent b/l, moist mucus membranes, EOMI, NCAT, tongue midline NECK: supple CARDIOVASCULAR EXAMINATION: normal s1 and s2, no murmurs, rubs or gallops appreciated RESPIRATORY EXAMINATION: somewhat diminished throughout, no rales, rhonchi or wheezing appreciated ABDOMINAL EXAMINATION: soft, non-distended, nabsx4, no rebound ridgty or guarding EXTREMITIES: no cyanosis, edema or clubbing appreciated SKIN: intact, fragile NEUROLOGICAL EXAMINATION: no focal deficits appreciated PSYCHIATRIC EXAMINATION: pt is apparently at baseline as per family, is more awake today and alert, trouble finding his words, can say yes and no with no difficulty. LABORATORY DATA: Please see below. IMAGING: CT head 06-12-17 IMPRESSION: 1. Small vessel ischemic disease. 2. Moderate volume loss. CXR 06-12-17 IMPRESSION: No acute pulmonary disease. Brain MRI 06-12-17 The ventricles and sulci are symmetric bilaterally. The brain parenchyma demonstrates moderate diffuse periventricular and subcortical white matter T2 hyperintensity. There is no midline shift, mass effect, or extra-axial fluid collection. The midline intracranial structures do not demonstrate any gross abnormalities. The cervical cranial junction is intact. The orbits are unremarkable. The visualized paranasal sinuses and mastoid air cells are clear. The osseous structures and superficial soft tissues are unremarkable. The vascular structures demonstrate appropriate flow voids. Impression: No evidence of acute infarct or hemorrhage. Moderate age-related atrophy and chronic small vessel ischemic disease. MRA brain 06-12-17 Findings: The vascular structures extending from the distal carotid and vertebrobasilar arterial systems, through the [place] of [place], demonstrate normal caliber and contour. There is no evidence of aneurysm, stenosis, or thrombosis. Impression: Unremarkable MRA examination of the brain. PROGNOSIS: stable, favorable ACTIVITY: As tolerated DIET: soft, aspiration precuations DISCHARGE PLAN: D/C back to [facility] DISPOSITION: Stable DISCHARGE INSTRUCTIONS: 1. D/C back to [facility], f/u with PCP within one week of d/c ITEMS TO FOLLOWUP ON ON OUTPATIENT: 1. D/C back to [facility], f/u with PCP within one week of d/c DISCHARGE CONDITION: Stable TIME SPENT ON DISCHARGE: Greater than 5 minutes. Vital Signs/I&Os Vital Signs Date Time Temp Pulse Resp B/P (MAP) Pulse Ox O2 Delivery O2 Flow Rate FiO2 06/15/17 05:57 78 152/68 (96) 84 150/69 (96) 91 139/78 (98) 06/14/17 22:58 98.9 18 97 Room Air Laboratory Data Labs 24H Laboratory Tests 2 06/15/17 06:34: White Blood Count 5.6, Red Blood Count 3.65L, Hemoglobin 10.6L, Hematocrit 32.1L , Mean Corpuscular Volume 87.9, Mean Corpuscular Hemoglobin 29.0, Mean Corpuscular Hemoglobin Concent 33.0, Red Cell Distribution Width 15.0H, Platelet Count 181, Neutrophils (%) (Auto) 62.2, Lymphocytes (%) (Auto) 16.3L, Monocytes (%) (Auto) 14.7H, Eosinophils (%) (Auto) 5.7H, Basophils (%) (Auto) 0.7, Neutrophils # (Auto) 3.5, Lymphocytes # (Auto) 0.9L, Monocytes # (Auto) 0.8 , Eosinophils # (Auto) 0.3, Basophils # (Auto) 0.0, Immature Granulocyte # (Auto ) 0.0, Nucleated Red Blood Cells % (auto) 0.0, Anion Gap 5L, Glomerular Filtration Rate > 60.0, Blood Urea Nitrogen 16, Creatinine 0.82, Sodium Level 137, Potassium Level 3.6, Chloride Level 102, Carbon Dioxide Level 30, Calcium Level 9.1 CBC/BMP Laboratory Tests 06/15/17 06:34 Red Blood Count 3.65 L, Mean Corpuscular Volume 87.9, Mean Corpuscular Hemoglobin 29.0, Mean Corpuscular Hemoglobin Concent 33.0, Red Cell Distribution Width 15.0 H, Neutrophils (%) (Auto) 62.2, Lymphocytes (%) (Auto) 16.3 L, Monocytes (%) (Auto) 14.7 H, Eosinophils (%) (Auto) 5.7 H, Basophils (% ) (Auto) 0.7, Neutrophils # (Auto) 3.5, Lymphocytes # (Auto) 0.9 L, Monocytes # (Auto) 0.8, Eosinophils # (Auto) 0.3, Basophils # (Auto) 0.0, Calcium Level 9.1 Microbiology Microbiology 06/13/17 Blood Culture - Preliminary, Resulted No Growth after 48 hours. All Specime... 06/13/17 Blood Culture - Preliminary, Resulted No Growth after 48 hours. All Specime... 06/12/17 Urine Culture, Received Pending Discharge Medications Scheduled (Multi Vitamin) 1 Tab Tab, 1 TAB PO DAILY, (Reported) (Aspirin) 81 Mg Chw, 81 MG PO DAILY, (Reported) (Ensure Enlive) 1 Liq Liq, 120 ML PO BID, (Reported) Ciprofloxacin HCl (Ciprofloxacin HCl) 500 Mg Tab, 500 MG PO Q12H Cyanocobalamin (Vitamin B-12) 1,000 Mcg Tab, 1,000 MCG PO DAILY, (Reported) Docusate Sod/Senna (Senna S 8.6-50 mg) 1 Tab Tab, 1 TAB PO BID, (Reported) Gabapentin (Gabapentin) 600 Mg Tab, 600 MG PO QHS, (Reported) Levothyroxine Sodium (Synthroid) 75 Mcg Tab, 75 MCG PO DAILY, (Reported) Tamsulosin Hydrochloride (Flomax) 0.4 Mg Cap, 0.4 MG PO DAILY, (Reported) Vitamin D (Vitamin D3) 1,000 Units Tab, 1,000 UNITS PO DAILY, (Reported) Scheduled PRN Acetaminophen (Tylenol) 325 Mg Tab, 650 MG PO Q4H PRN for PAIN OR FEVER, ( Reported) Bisacodyl (Dulcolax) 10 Mg Sup, 10 MG UT DAILY PRN for CONSTIPATION, (Reported) Milk Of Magnesia (Milk of Magnesia) 1,200 Mg/15 Ml [place], 30 ML PO DAILY PRN for CONSTIPATION, (Reported) Sodium Phosphate/Biphosphate (Enema 7-19 gm/118Ml) 1 Thang Thang, 1 THANG UT DAILY PRN for CONSTIPATION, (Reported) Allergies Coded Allergies: Aripiprazole (Verified Allergy, Unknown, 12/25/12) Cephalosporins (Verified Allergy, Unknown, CEFUROXIME, 12/25/12) Codeine (Verified Allergy, Unknown, 12/25/12) Meperidine (Verified Allergy, Unknown, 12/25/12) Simvastatin (Verified Allergy, Unknown, 12/25/12) Amitriptyline (Verified Adverse Reaction, Mild, hallucinations, 11/28/16) Carbidopa w/Levodopa (Verified Adverse Reaction, Mild, caused severe fatigue, 11/28/16) Donepezil (Verified Adverse Reaction, Mild, increased confusion, 11/28/16) Memantine (Verified Adverse Reaction, Mild, confusion, 11/28/16) Perphenazine (Verified Adverse Reaction, Mild, hallucinations, 11/28/16) Venlafaxine (Verified Adverse Reaction, Mild, headache, 11/28/16) Zonisamide (Verified Adverse Reaction, Mild, confusion, insomnia, 11/28/16) GME ATTESTATION GME ATTESTATION My preceptor for this patient encounter was physically present in the building during the encounter and was fully available. As needed, all aspects of the patient interview, examination, medical decision making process, and medical care plan development were reviewed and approved by the preceptor. Preceptor is aware and concurs with the plan as stated in the body of this note and will attest to such by his/her cosignature. YADIEL SMALL DO Jun 15, 2017 10:09 AUSTYN MCKOY DO Jul 04, 2017 23:35
[2017-06-15] MEDS: CIPROFLOXACIN 400 MG in APPROPRIATE DILUENT 1 EA IV SCH (11:00)
== END 2017-06-15 11:56 | DRG 312 ==
LOC: EDBD 08:56 → M ED 08:56 → M ED INP 12:33 → M PCU 16:10 → M MSPAV 06-14 15:06
PROVIDERS: ADMIT General Practice; ATTEND Internal Medicine
DX: R55 Syncope and collapse (principal); N39.0 Urinary tract infection, site not specified; E03.9 Hypothyroidism, unspecified; I10 Essential (primary) hypertension; F32.9 Major depressive disorder, single episode, unspecified; G20 Parkinson's disease; G31.83 Neurocognitive disorder with Lewy bodies; F02.80 Dementia in other diseases classified elsewhere, unspecified severity, without behavioral disturbance, psychotic disturbance, mood disturbance, and anxiety; Z79.899 Other long term (current) drug therapy; Z88.8 Allergy status to other drugs, medicaments and biological substances

== ENCOUNTER → 2017-06-22 | Outpatient (REF) ==
[~2017-06-22] MED LIST changes: +ALPR0.25 PO; +CELE20TA PO; +CIPR500T3 PO; +DULC10SU2 PR; +ENEMENE16 PR; +ENSULIQ64 PO; +FLOM5CAP PO; +MILKSUS PO; +MULT1TAB18 PO; +SENN8.6C PO; +SENN8.6T7 PO; +TYLE325T5 PO
[2017-06-22 09:21] LABS: MEAN CORPUSCULAR HEMOGLOBIN 29.3 pg (27.0-33.0); MEAN CORPUSCULAR VOLUME 88.6 fl (80.0-96.0); RED CELL DISTRIBUTION WIDTH 15.2 % (11.5-14.5); WHITE BLOOD COUNT 8.7 10^3/uL (4.0-10.0)
[2017-06-22 09:34] LABS: ANION GAP 7 MEQ/L (8-16); BLOOD UREA NITROGEN 13 MG/DL (7-18); CALCIUM LEVEL 8.8 MG/DL (8.8-10.2); CARBON DIOXIDE LEVEL 30 MEQ/L (21-32); CHLORIDE LEVEL 99 MEQ/L (98-107); CREATININE FOR GFR 0.92 MG/DL (0.70-1.30); GLOMERULAR FILTRATION RATE > 60.0 (>35); GLUCOSE, FASTING 155 MG/DL (83-110); POTASSIUM SERUM 3.9 MEQ/L (3.5-5.1); SODIUM LEVEL 136 MEQ/L (136-145)
--- NOTE | 2017-06-22 15:18 | REP ---
Chest one-view HISTORY: Fever Comparison: 06/12/2017 Patchy density is present in the left lower lobe consistent with atelectasis or infiltrate. The right lung is clear. The heart is normal in size. The pulmonary vasculature is normal in appearance. Impression: Left lower lobe atelectasis or infiltrate. Signed by Jayden Smalls MD 06/22/2017 11:36 A
== END ==
LOC: SKLAB3 08:32
DX: R50.9 Fever, unspecified (principal)

== ENCOUNTER → 2017-07-20 | Outpatient (REF) | payer MEDICARE, BC, OTHER ==
[2017-07-20 12:05] LABS: BASO # 0.1 10^3/uL (0.0-0.2); BASO % 0.6 % (0.0-1.0); EOS # 0.2 10^3/uL (0.0-0.50); EOS % 2.9 % (0.0-3.0); IMMATURE GRANULOCYTE % 0.5 % (0-0); LYMPH # 1.3 10^3/uL (1.5-4.5); LYMPH % 15.9 % (24.0-44.0); MEAN CORPUSCULAR HGB CONC 33.3 g/dl (32.0-36.5); MONO # 1.3 10^3/uL (0.0-0.8); MONO % 16.9 % (0.0-5.0); NEUTROPHILS % 63.2 % (36.0-66.0); PLATELET COUNT, AUTOMATED 232 10^3/uL (150-450); RED CELL DISTRIBUTION WIDTH 14.8 % (11.5-14.5); WHITE BLOOD COUNT 7.9 10^3/uL (4.0-10.0)
== END ==
LOC: SKLAB3 10:15
DX: R41.82 Altered mental status, unspecified (principal)